=== PATIENT | female | born 1950 | race Caucasian/White ===

== ENCOUNTER 2019-03-11 13:30 | Inpatient (IN) | payer MEDICARE ==
[2019-03-11 14:26] LABS: Bilirubin Negative (Negative); Blood, Urine Negative (Negative); Clarity Turbid (Clear); Glucose, Urine (Dipstick) Normal (Negative); Leukocyte Negative Leu/uL (Negative); Nitrite Negative (Negative); Protein, Urine (Dipstick) 30 mg/dL (Neg-Trace)
[2019-03-11 14:45] LABS: Bacteria/HPF None Seen HPF (None Seen); RBC/HPF 0-3 HPF (0-3); Squamous Epithelial 0-3 HPF (0-3); WBC/HPF 0-3 HPF (0-3)
--- NOTE | 2019-03-11 14:50 | CT ---
CT HEAD WITHOUT CONTRAST: Date: 03/11/19 INDICATION: Left side weakness. Mental status change. No comparison. FINDINGS: Mild cortical volume loss. Mild chronic ischemic white matter change. No evidence of parenchymal hemo rrhage, mass, or acute infarct. Small focal dural based calcifications along the lateral wall of the left middle temporal fossa may r epresent small calcified meningioma and these are incidental. Sinuses and mastoids are clear. IMPRESSION: There are chronic ischemic changes. No acute process identified. POS: [facility]
[2019-03-11 15:18] LABS: Hemoglobin 10.3 g/dL (12.0-16.0); Mean Corpuscular HGB CONC 31.3 g/dL (32.0-36.0); Mean Corpuscular Volume 99.1 fL (78.0-98.0); Mean Platelet Volume 9.1 fL (7.4-10.4); Platelet Count 138 thou/uL (130-400); RBC Distribution Width 16.5 % (11.5-14.5); Red Blood Cell (RBC) Count 3.32 mill/uL (4.20-5.40)
[2019-03-11 15:22] LABS: Albumin 1.8 g/dL (3.4-4.8)
[2019-03-11 15:23] LABS: Chloride 100 mmol/L (98-107); Sodium 125 mmol/L (136-145)
[2019-03-11 15:24] LABS: Calcium 7.7 mg/dL (7.8-10.44)
[2019-03-11 15:25] LABS: Globulin 3.5 g/dL (2.4-3.5); Glucose 134 mg/dL (80-115); Protein, Total 5.3 g/dL (6.0-8.3)
[2019-03-11 15:26] LABS: Anion Gap 15 mmol/L (10-20); Carbon Dioxide 14 mmol/L (23-31)
[2019-03-11 15:27] LABS: Alkaline Phosphatase 320 U/L (40-150); Bilirubin, Total 2.4 mg/dL (0.2-1.2)
[2019-03-11 15:27] LABS: CKMB 2.4 ng/mL (0-6.6)
[2019-03-11 15:28] LABS: Calc. Creatinine Clearance 0 mL/min (70-130); Estimated GFR-MDRD 62
[2019-03-11 15:29] LABS: BUN (Urea Nitrogen) 13 mg/dL (9.8-20.1)
[2019-03-11 15:30] LABS: ALT (SGPT) 28 U/L (8-55); AST (SGOT) 43 U/L (5-34)
[2019-03-11 15:36] LABS: Anisocytosis SLIGHT = 6-15 cells (100X) (0-5/hpf); Band 11 % (5-11); Lymphocytes 5 % (21-51); MDiff Complete? YES; Monocytes 4 % (0-10); Neutrophil 80 % (42-75); Nucleated RBC 1 % (0); Platelet Morphology Comment Appears Adequate; Polychromasia SLIGHT = 2-3 cells (100X) (0-2/hpf); Target Cells SLIGHT = 2-5 cells (100X) (0-1/hpf); White Blood Cell (WBC) Count 14.7 thou/uL (4.8-10.8)
[2019-03-11] MEDS ORDERED: Piperacillin/Tazobactam 4.5 GM VIAL ONE (15:49)
--- NOTE | 2019-03-11 16:23 | RAD ---
SINGLE VIEW CHEST: HISTORY: Altered mental status. COMPARISON: None. FINDINGS: Single view of the chest show normal sized cardiomediastinal silhouette. There is no evidence of cons olidation, mass, or pleural effusion. The bones are unremarkable. IMPRESSION: No evidence of acute cardiopulmonary disease. POS: C
[2019-03-11 17:51] LABS: Troponin I 0.049 ng/mL (< 0.028)
[2019-03-11] MEDS ORDERED: Aspirin 300 MG Suppository ONE (18:42)
--- NOTE | 2019-03-11 20:09 | HP ---
PRIMARY CARE PROVIDERS: ALYSSA Senior CHIEF COMPLAINT: "Not really responding." HISTORY OF PRESENT ILLNESS: This is a 68-year-old female, by chart review with history of malnutrition, pancreatitis on Creon, hypokalemia, hyponatremia, GERD, hypertension, who presents to the emergency room from [facility] for a change in mentation. History from the states that she is not really responding. He reports that she was hospitalized at another facility and thinks it was [facility], and then transferred to the residential. He is unaware of why they transferred her here today. He states that she is normally verbal, she has been bed-bound over the past month, and that her speech is different today. The patient is not moving her left arm, minimal movement of her left leg. He is not certain when this began. The patient reports that she feels better. She is unable to tell me what had happened, what changed and what is new now. In the emergency room, the patient hypothermic, tachycardic, with a leukocytosis , lactic acidosis, hyponatremia. She has received 1.5 L of normal saline, 4.5 g of Zosyn, and hospitalist called for admission. ALLERGIES: NO ALLERGIES TO MEDICATIONS CONFIRMED WITH THE PATIENT. CURRENT MEDICATIONS: [place] [facility] [place] 1. heparin 5000 units every 8 hours; however, on the sheet that is sent over, it states see the other MAR and this order was discontinued, it is not listed in any of the other paperwork. 2. Folic acid 1 mg daily. 3. Vitamin B12 of 1000 mcg daily. 4. Creon. The dosing strength is not listed. It only states three times daily. 5. Magnesium oxide 400 mg daily. 6. Multivitamin daily. 7. Pantoprazole 40 mg b.i.d. 8. Potassium phosphate t.i.d. with meals. 9. Thiamine 100 mg daily. 10. Furosemide 20 mg tablet 1/2 tablet daily. PAST MEDICAL HISTORY: By chart review 1. Malnutrition. 2. Pancreatitis. 3. Hypokalemia. 4. Hyponatremia. 5. GERD. 6. Hypertension. 7. Alcohol and tobacco abuse. PAST SURGICAL HISTORY: The patient reports a left breast surgery at age 16. SOCIAL HISTORY: She is , her reports she is a full code, she [place] [facility] FAMILY HISTORY: Unobtainable. REVIEW OF SYSTEMS: Unobtainable. PHYSICAL EXAMINATION: VITAL SIGNS: Her blood pressure 110/73, pulse 99, respirations 20, rectal temperature at 17:15 was 94.8, and 100% on room air. GENERAL: Patient does awaken to voice, not in apparent distress, cachectic appearing. HEENT: Her eyes are deviated to the right, do not cross the midline even to request. She has no scleral icterus. Her pupils are equal and round. Oral mucosa is pink and moist. NECK: Supple. Nontender. LUNGS: Clear to auscultation bilateral. No audible wheezing, rhonchi, or rales. HEART: Normal S1, S2. Distant heart sounds. No significant murmur. ABDOMEN: Soft. No tenderness to palpation. No palpable abnormalities. EXTREMITIES: Her lower extremities, she has 2+ pitting edema bilateral. SKIN: No visible rashes, some erythema noted by the nurses of her sacrum, but no breakdown of skin. NEURO: The patient is not following commands, no movement of her left arm with a left hand contracture, movement of her left toes only but not of her leg, full movement of her right arm, no movement noted of her right leg, extraocular movements as noted above. PSYCH: Unable to adequately assess. VASCULAR: 2+ dorsalis pedis pulses. LABORATORY DATA: Labs reviewed. CBC 14.7, 10.3, 33, 138. Chemistry: 125, 4.0, 114, 13, 0.9, 134. Lactic acid is 6.2. Calcium is 7.7, T-bilirubin 2.4, AST 43, ALT 28, alkaline phosphatase 320. Troponin 0.04, 0.049. Total protein 5.3, albumin 1.8. Urinalysis shows present protein and urobilinogen. EKG is personally reviewed, sinus rhythm, normal axis, and lots of artifact. CT scan of the brain shows chronic ischemic changes. No acute process. Chest x-ray, no evidence of acute cardiopulmonary disease. IMPRESSION: 1. Left hemiparesis as well as a hemianopsia, uncertain if this is acute or chronic and it is consistent with ischemic stroke. 2. Hyponatremia, uncertain if this is acute or chronic. 3. Cachexia, severe, protein-calorie malnutrition. 4. Lactic acidosis, concern for sepsis, however, no source of infection identified. 5. History of pancreatitis, on Creon therapy. 6. Gastroesophageal reflux disease. 7. History of hypertension, normotensive here. 8. Hypoalbuminemia. 9. Lower extremity edema. 10. Proteinuria. PLAN: 1. Admission to the hospital. 2. Stroke evaluation which will include Stroke Team, Neurology, MRI of the brain , echocardiogram to start with. 3. Dietitian consultation given the severe protein-calorie malnutrition, n.p.o. until cleared by Speech. 4. For the hyponatremia, consultation with Dr. Muse, he will see her this evening and manage the fluids. 5. Holding her outpatient medications and vitamin supplements for now. We will use IV PPI as she is on this twice daily. 6. We will continue Zosyn and lower the dosing covering for sepsis and monitoring her cultures. 7. Obtaining urine studies for the hyponatremia. 8. Continuing daily aspirin. We will use rectal aspirin for now. 9. Obtain records from [facility] to determine to help decipher what is acute versus what is chronic. 10. Palliative Care consultation to assist with goals of care, discussions with the patient's , and any recommendations on symptom management. 11. DVT prophylaxis. We will use heparin. 12. GI prophylaxis. The patient is on a b.i.d. PPI. We will use that in IV form. 13. Code status is full in discussion with the who is her surrogate decision maker. The patient is at high risk to include risk of in-hospital , given current presentation. Reviewed the plan of care with the patient's , no questions or further needs at end of evaluation. Job ID: [id number] MTDD
[2019-03-11 20:18] LABS: #Lymphocytes 1.4 thou/uL (1.20-3.40); #Monocytes 0.5 thou/uL (0.11-0.59); #Neutrophils 9.5 thou/uL (1.40-6.50); %Basophils 0.3 % (0.0-1.0); %Eosinophils 0.1 % (0.0-10.0); %Lymphocytes 11.9 % (21.0-51.0); %Monocytes 4.4 % (0.0-10.0); %Neutrophils 83.3 % (42.0-75.0); Hemoglobin 8.2 g/dL (12.0-16.0); Mean Corpuscular Hemoglobin 31.2 pg (27.0-31.0); Mean Platelet Volume 9.2 fL (7.4-10.4); Platelet Count 133 thou/uL (130-400); RBC Distribution Width 16.3 % (11.5-14.5); Red Blood Cell (RBC) Count 2.61 mill/uL (4.20-5.40); White Blood Cell (WBC) Count 11.5 thou/uL (4.8-10.8)
[2019-03-11 20:39] LABS: Lactic Acid 3.8 mmol/L (0.5-2.2)
[2019-03-11 20:42] LABS: ALT (SGPT) 25 U/L (8-55); AST (SGOT) 38 U/L (5-34); Albumin 1.5 g/dL (3.4-4.8); Alkaline Phosphatase 276 U/L (40-150); Anion Gap 13 mmol/L (10-20); BUN (Urea Nitrogen) 14 mg/dL (9.8-20.1); Calc. Creatinine Clearance 0 mL/min (70-130); Calcium 7.2 mg/dL (7.8-10.44); Carbon Dioxide 15 mmol/L (23-31); Chloride 103 mmol/L (98-107); Estimated GFR-MDRD 65; Globulin 3.1 g/dL (2.4-3.5); Glucose 140 mg/dL (80-115); Potassium 3.8 mmol/L (3.5-5.1); Protein, Total 4.6 g/dL (6.0-8.3); Sodium 127 mmol/L (136-145)
[2019-03-11 20:45] LABS: Troponin I 0.035 ng/mL (< 0.028)
--- NOTE | 2019-03-11 20:55 | ULT ---
CAROTID ULTRASOUND: 03/11/19 COMPARISON: None. HISTORY: Stroke. Altered mental status and left sided weakness. TECHNIQUE: Multiplanar jenkins scale and color Doppler images were obtained in a carotid ultrasound. Spectral leatha sis of the Doppler waveforms were performed. FINDINGS: This exam is limited secondary to altered mental status and inability to turn head. There is a large amount of plaque seen in the distal aspect of the left common femoral artery and internal carotid art todd. The right common carotid artery could be seen but the bifurcation and right internal carotid art todd could not be visualized secondary to inability to turn head. Peak systolic velocity in the left ICA is 112 cm/s. Peak systolic velocity in the left CCA is 69 cm/ s. The left ICA/CCA ratio is 1.6. The right ICA could not be visualized as stated above. Both vertebral arteries demonstrate antegrade flow without focal stenosis. IMPRESSION: 1. No evidence of hemodynamically significant stenosis in the left internal carotid artery altho ugh a significant amount of plaque is seen. 2. Inability to evaluate the right internal carotid artery secondary to altered mental status an d inability to turn head. POS: [facility]
[2019-03-11] MEDS: Sodium Chloride 0.9% 1,000 ML IV SCH (21:55)
[2019-03-11] MEDS: Heparin 5,000 UNITS/ML VIAL SC SCH (21:56)
[2019-03-11] MEDS: Pantoprazole 40 MG VIAL IVP SCH (21:57)
[2019-03-11] MEDS: Albumin 25% 25 GM/100 ML BOT IVPB SCH (22:05)
[2019-03-11] MEDS: Piperacillin/Tazobactam 2.25 GM in Sodium Chloride 0.9% 100 ML IVPB SCH (22:13)
--- NOTE | 2019-03-12 03:30 | CON ---
DATE OF CONSULTATION: 03/11/2019 CONSULTING PHYSICIAN: Leny Gonzalez MD REASON FOR CONSULT: Hyponatremia. REASON FOR ADMISSION: Altered mentation. HISTORY OF PRESENT ILLNESS: This is a 68-year-old female with history of hypokalemia, hyponatremia, hypertension, pancreatitis, malnutrition, came to the hospital with altered mentation. She was sent from [facility]. She is not able to give a good history. Most of the history was obtained from review of the records. The patient is not verbally answering the queries and has been bedbound. No nausea or vomiting. No chest pain or palpitation reported. PAST MEDICAL HISTORY: Positive for malnutrition, hypokalemia, hyponatremia, GERD, hypertension, alcohol, tobacco use. PAST SURGICAL HISTORY: Breast surgery. HOME MEDICATIONS: Include; 1. Heparin. 2. Folic acid. 3. Vitamin B12. 4. Creon. 5. Magnesium oxide. 6. Multivitamin. 7. Pantoprazole. 8. Potassium phosphate. 9. Thiamine. 10. Furosemide. ALLERGIES: NO KNOWN DRUG ALLERGIES. SOCIAL HISTORY: History of alcohol use and she is . She lives in a custodial. FAMILY HISTORY: Not available. REVIEW OF SYSTEMS: Could not be obtained due to altered mentation. PHYSICAL EXAMINATION: GENERAL: This is a thin-built elderly female, in no apparent distress. VITAL SIGNS: Temperature 94.8, pulse 99, respiratory rate 20, blood pressure 110/73. HEENT: Atraumatic, normocephalic. Oral mucosa is moist. NECK: Supple. CV: S1, S2 heard. Rate and rhythm regular. RESPIRATORY: Clear. GI: Abdomen is soft. MUSCULOSKELETAL: 2+ edema. DERMATOLOGIC: No skin rash. NEUROLOGIC: Confused and altered mentation. LABORATORY DATA: Hemoglobin is 8.2, MCV is 101, white count is 11.5. Potassium 3.8, sodium is 127, BUN is 14, creatinine is 0.8, and albumin is 1.5. ASSESSMENT AND PLAN: 1. Hyponatremia, most likely from reduced solute intake and hypovolemia. Plan is to have IV fluids. The patient did respond to IV fluids so far. 2. Metabolic acidosis. We will continue IV fluids for now. 3. Severe hypoalbuminemia with severe protein energy malnutrition. Plan is to give IV albumin for volume expansion. 4. Anemia, macrocytic, on folate. 5. Edema, chronic. 6. Hypertension, stable. Continue on IV fluids. Check urine protein to creatinine ratio. Check urine electrolytes. We will follow. Job ID: [id number]
[2019-03-12] MEDS: Piperacillin/Tazobactam 2.25 GM in Sodium Chloride 0.9% 100 ML IVPB SCH ×4 (05:10→23:58)
[2019-03-12] MEDS: Albumin 25% 25 GM/100 ML BOT IVPB SCH (05:11)
[2019-03-12 05:16] LABS: #Eosinphils 0.1 thou/uL (0.0-0.7); #Lymphocytes 1.6 thou/uL (1.20-3.40); #Neutrophils 8.7 thou/uL (1.40-6.50); %Basophils 0.2 % (0.0-1.0); %Eosinophils 0.8 % (0.0-10.0); %Lymphocytes 14.4 % (21.0-51.0); %Monocytes 8.3 % (0.0-10.0); %Neutrophils 76.3 % (42.0-75.0); Hemoglobin 7.8 g/dL (12.0-16.0); Mean Corpuscular HGB CONC 31.4 g/dL (32.0-36.0); Mean Corpuscular Hemoglobin 31.3 pg (27.0-31.0); Mean Corpuscular Volume 99.7 fL (78.0-98.0); Mean Platelet Volume 9.3 fL (7.4-10.4); Platelet Count 132 thou/uL (130-400); RBC Distribution Width 16.4 % (11.5-14.5); Red Blood Cell (RBC) Count 2.49 mill/uL (4.20-5.40); White Blood Cell (WBC) Count 11.4 thou/uL (4.8-10.8)
[2019-03-12 05:43] LABS: Anion Gap 11 mmol/L (10-20); BUN (Urea Nitrogen) 15 mg/dL (9.8-20.1); Calc. Creatinine Clearance 57 mL/min (70-130); Calcium 7.5 mg/dL (7.8-10.44); Carbon Dioxide 17 mmol/L (23-31); Cardiac Risk TEST NOT PERFORMED (Less than 4.5); Chloride 105 mmol/L (98-107); Cholesterol 67 mg/dl (< 200 Desired); Estimated GFR-MDRD 65; Glucose 102 mg/dL (80-115); HDL Cholesterol Less than 8 mg/dL (>60 Neg Risk); Potassium 3.6 mmol/L (3.5-5.1); Sodium 129 mmol/L (136-145); Triglycerides 61 mg/dL (Less than 150)
[2019-03-12 06:14] LABS: Creatinine, Urine 23.61 mg/dL (47-110); Protein, Urine Random Quant Less than 10 mg/dL (1-14); Sodium, Urine Less than 20 mmol/L (Not Available)
[2019-03-12] MEDS: Heparin 5,000 UNITS/ML VIAL SC SCH ×2 (10:32→21:44)
[2019-03-12] MEDS: Pantoprazole 40 MG VIAL IVP SCH ×2 (10:33→21:44)
[2019-03-12] MEDS: Sodium Chloride 0.9% 1,000 ML IV SCH (10:34)
--- NOTE | 2019-03-12 10:46 | MRI ---
MRI BRAIN WITHOUT CONTRAST: Date: 03/12/19 HISTORY: Left-sided weakness, mental status change. FINDINGS: There is restricted diffusion due to large right and small left watershed infarctions in the cerebral hemispheres. No hemorrhage, midline shift, or abnormal extra-axial fluid collections are seen. There are changes of cortical atrophy and chronic small vessel ischemic disease. The ventricular size is a ppropriate and the basilar cisterns are patent. IMPRESSION: Acute large right and small left watershed infarctions in the cerebral hemispheres. POS: [facility]
--- NOTE | 2019-03-12 11:49 | PDOC.PALCO ---
Palliative Care Consult - Consult Details Requesting Physician: Dr Gonzalez ([facility]) Reason for Consult: goals of care, advance directives assistance, assistance with communication prognosis/disease, complex decision-making, coping issues - Pertinent HPI Resident of [facility] who was transferred to emergency room for evaluation secondary to altered mental status. reported in the ER that patient has a recent hospitalization at [facility], was then transferred to [facility] and has been bedbound recently. - Pertinent PMH Malnutrition, pancreatitis, hypokalemia, hyponaturemia, hypertension, alcohol and tobacco abuse. - Social History Smoking Status: Former smoker Living Situation: skilled nursing resident - Allergies Allergies/Adverse Reactions: Allergies Allergy/AdvReac Type Severity Reaction Status Date / Time No Known Allergies Allergy Verified 03/12/19 00:17 - Subjective Sleeping, difficult to arouse. Patient did not follow request/or unable to patient case coordinator hands, move lower extremities. Staff report that patient was awake earlier, failed consult from speech therapy in relation to swallow test. - Objective Vital Signs: Vital Signs - Most Recent Temp Pulse Resp BP Pulse Ox 97.5 F L 115 H 14 92/65 98 03/12/19 08:00 03/12/19 08:51 03/12/19 08:00 03/12/19 08:51 03/12/19 08:00 Palliative Performance Scale: 20 - Physical Exam Deviation from normal: difficult to arouse, chronically ill appearing, cachetic HEENT: moist MMs Respiratory: no wheezing, unlabored breathing Cardiovascular: RRR Gastrointestinal: soft, positive bowel sounds Musculoskeletal: edema present Deviation from normal: report of left hemiplegia, unable to follow my request to patient case coordinator hands - Problem List (1) Palliative care encounter Code(s): Z51.5 - ENCOUNTER FOR PALLIATIVE CARE Current Visit: Yes Status: Acute - Plan/Recommendations Plan: Called patient daughter Alexis , will update after visiting with patient . Meeting arranged with patient Mr Jiang [phone]. Plan to discuss patient DNAR status, as well as OOHDNAR. Will discuss goals for patient paired with change in current health status. Dr Nguyen notified of plan. Will continue to follow with Kimi Vicente RNproduct manager RN. [60] minutes spent on this encounter with >50% of the time in counseling and coordination of care. Thank you for this very appropriate consult.
--- NOTE | 2019-03-12 13:12 | CON ---
DATE OF CONSULTATION: 03/12/2019 CONSULTING PHYSICIAN: Hospitalist Service. IMPRESSION: Dementia with reported mental status changes of uncertain etiology. PLAN: 1. IV fluids. 2. Monitor clinical course. 3. Check B12, T4, ammonia level. HISTORY OF PRESENT ILLNESS: Ms. Jiang is a 68-year-old black female with reported history of dementia and some metabolic issues including hypokalemia, hyponatremia, reflux, hypertension, pancreatitis, and malnutrition. She came in after her reports that she did not seem to be responding appropriately. No other history available. Her CT of the brain showed some normal age-related changes. Carotid ultrasound did not show any stenosis. LABORATORY STUDIES: Notable for hypocalcemia of 7.7, elevated bilirubin of 2.4, mild elevation of liver enzymes, and low protein levels. Bicarb was 14 and sodium was 125. PAST MEDICAL HISTORY: Otherwise as listed. ALLERGIES: NONE. SOCIAL HISTORY: Unremarkable. FAMILY HISTORY: Not obtainable. REVIEW OF SYSTEMS: Not obtainable. PHYSICAL EXAMINATION: GENERAL: She is a thin elderly female, lying in bed, in no acute distress. VITAL SIGNS: Blood pressure 112/68, pulse 114, respirations 14, temperature 97.5. HEENT: Pupils equal. Conjunctivae clear. Oropharynx is clear. Cranium, normocephalic and atraumatic. NECK: Supple. No lymphadenopathy noted. EXTREMITIES: No cyanosis or edema noted. NEUROLOGIC: She is lethargic and does not respond to verbal stimulation. I could get her to open her eyes briefly, but she would not follow any commands. Face appears to be symmetric. Her tone appears to be symmetric. No abnormal movements are seen. SUMMARY: This is an elderly lady with a history of dementia, who presents with some metabolic abnormalities on her labs. I do not see any evidence of an acute neurologic event at this point, suspect is going to be a metabolic encephalopathy. Check for the lab for completeness. Job ID: [id number]
--- NOTE | 2019-03-12 14:45 | PRG ---
DATE OF SERVICE: 03/12/2019 SUBJECTIVE: Patient was seen and examined at bedside and overnight events noted. Patient denies any shortness of breath or chest pain or palpitation. No history of nausea or vomiting or diarrhea or fever or chills or cramps. OBJECTIVE: GENERAL: This is an elderly female, nonverbal, in no acute distress. VITAL SIGNS: Temperature 97.3. Heart rate . Respiratory rate . Blood pressure 106/66. HEENT: Atraumatic, normocephalic. Oral mucosa is moist NECK: Supple. CARDIOVASCULAR: S1, S2 heard. Rate and rhythm regular. RESPIRATORY: Clear to auscultation. GASTROINTESTINAL: Abdomen is soft. MUSCULOSKELETAL: No tenderness. No edema. DERMATOLOGIC: No skin rash. NEUROLOGIC: Alert and awake and oriented X3. No focal neurologic deficits. Moving all the extremities. PSYCHIATRIC: Mood and affect normal. LABORATORY DATA: Sodium 129 and creatinine 0.8. ASSESSMENT AND PLAN: 1. Hyponatremia, getting better. Continue on IV fluids. Most likely from reduced solute intake. 2. Metabolic acidosis. 3. Severe hypoalbuminemia. 4. Edema, chronic. 5. Hypertension, stable. Continue IV fluids. Monitor sodium. Job ID: [id number]
--- NOTE | 2019-03-12 15:29 | PDOC.PN ---
- Subjective Encounter Start Date: 03/12/19 Encounter Start Time: 12:00 Pt seen for followup re: ischemic stroke. Pt not answering questions, unable to complete ROS. - Objective Resuscitation Status - Order Detail: 03/11/19 19:01 Resuscitation Status Routine Resuscitation Status: FULL: Full Resuscitation Discussed with: confirmed with ROSSY Reviewed: Yes Vital Signs & Weight: Vital Signs (12 hours) Temp Pulse Pulse Pulse Resp BP BP 03/12/19 12:00 97.3 F L 99 16 03/12/19 08:51 115 H 108 H 92/65 73/51 L 03/12/19 08:47 115 H 108 H 92/65 73/51 L 03/12/19 08:00 97.5 F L 114 H 14 03/12/19 03:54 97.4 F L 110 H 18 BP Pulse Ox 03/12/19 12:00 106/66 99 03/12/19 08:51 03/12/19 08:47 03/12/19 08:00 112/68 98 03/12/19 03:54 99/61 99 Weight Admit Weight 129 lb 8 oz Weight 129 lb 8 oz I&O: 03/11/19 03/12/19 03/13/19 06:59 06:59 06:59 Output Total 281 Balance -281 Result Diagrams: 03/12/19 04:46 03/12/19 04:46 EKG Reviewed by me: Yes (Tele: NSR) Phys Exam - Physical Examination Constitutional: NAD HEENT: moist MMs Neck: supple Respiratory: clear to auscultation bilateral Cardiovascular: RRR Gastrointestinal: soft Neurological: moves all 4 limbs Deviation from normal: Unable to assess Dx/Plan (1) Acute ischemic stroke Code(s): I63.9 - CEREBRAL INFARCTION, UNSPECIFIED Status: Acute Comment: continue aspirin, start statin (2) Hyponatremia Code(s): E87.1 - HYPO-OSMOLALITY AND HYPONATREMIA Status: Chronic Comment: sodium improved to 129 (3) GERD (gastroesophageal reflux disease) Code(s): K21.9 - GASTRO-ESOPHAGEAL REFLUX DISEASE WITHOUT ESOPHAGITIS Status: Chronic Comment: continue Protonix 40 mg IV q12hr (4) HTN (hypertension) Code(s): I10 - ESSENTIAL (PRIMARY) HYPERTENSION Status: Chronic Comment: controlled - Plan * . Review of Systems - Medications/Allergies Allergies/Adverse Reactions: Allergies Allergy/AdvReac Type Severity Reaction Status Date / Time No Known Allergies Allergy Verified 03/12/19 00:17 Medications: Current Medications Aspirin (Aspirin) 300 mg MT Q24HR [facility] Atorvastatin Calcium (Lipitor) 40 mg PO HS [facility] Heparin Sodium (Porcine) (Heparin) 5,000 units SC Q12HR [facility] Last Admin: 03/12/19 10:32 Dose: 5,000 units Piperacillin Sod/Tazobactam (Sod 2.25 gm/ Sodium Chloride) 100 mls @ 200 mls/ hr IVPB 0400,1000,1600,2200 [facility] Last Admin: 03/12/19 10:34 Dose: 100 mls Sodium Chloride (Normal Saline 0.9%) 1,000 mls @ 75 mls/hr IV .[id number] [facility] Last Admin: 03/12/19 10:34 Dose: 1,000 mls Miscellaneous Medication (Pharmacy To Dose) 1 each IVPB PRN PRN PRN Reason: Pharmacy to dose Pantoprazole Sodium (Protonix) 40 mg IVP Q12HR [facility] Last Admin: 03/12/19 10:33 Dose: 40 mg Sodium Chloride (Flush - Normal Saline) 10 ml IVF PRN PRN PRN Reason: Saline Flush Last Admin: 03/11/19 21:58 Dose: 10 ml
--- NOTE | 2019-03-12 16:13 | PDOC.PALFU ---
Palliative Care Follow-up Note Extensive conversatin with patient in relation to patient decline, and resuscitation status. Mr Jiang states that he and his never discussed their wishes if they became ill and not able to make decisions for themselves. Mr Jiang having difficulty understanding her decline and making the decision to have patient either a DNAR or full resuscitation. Communicated with patients daughter and she is understanding of patient decline and the severity of Mrs Jiang health status. Encouraged Mr Jiang to discuss with his step daughter and discuss and communicate to health care team tomorrow their wishes.
[2019-03-12] MEDS: Aspirin 300 MG Suppository PR SCH (18:22)
[2019-03-12] MEDS: Atorvastatin Calcium 40 MG TAB PO SCH (21:43)
[2019-03-13] MEDS: Sodium Chloride 0.9% 1,000 ML IV SCH ×2 (06:18→23:17)
[2019-03-13] MEDS: Piperacillin/Tazobactam 2.25 GM in Sodium Chloride 0.9% 100 ML IVPB SCH ×4 (06:18→23:18)
[2019-03-13] MEDS: Heparin 5,000 UNITS/ML VIAL SC SCH ×2 (10:52→20:29)
[2019-03-13] MEDS: Pantoprazole 40 MG VIAL IVP SCH ×2 (10:53→20:29)
[2019-03-13 11:54] LABS: Anion Gap 14 mmol/L (10-20); BUN (Urea Nitrogen) 14 mg/dL (9.8-20.1); Calc. Creatinine Clearance 61 mL/min (70-130); Calcium 7.7 mg/dL (7.8-10.44); Carbon Dioxide 15 mmol/L (23-31); Chloride 108 mmol/L (98-107); Estimated GFR-MDRD 70; Glucose 77 mg/dL (80-115); Potassium 3.2 mmol/L (3.5-5.1); Sodium 134 mmol/L (136-145)
--- NOTE | 2019-03-13 13:16 | PDOC.PN ---
- Subjective Encounter Start Date: 03/13/19 Encounter Start Time: 07:20 Pt seen for followup re: ischemic CVA. Not answering questions, unable to complete ROS. - Objective Resuscitation Status - Order Detail: 03/11/19 19:01 Resuscitation Status Routine Resuscitation Status: FULL: Full Resuscitation Discussed with: confirmed with ROSSY Reviewed: Yes Vital Signs & Weight: Vital Signs (12 hours) Temp Pulse Resp BP Pulse Ox 03/13/19 11:49 97.9 F 94 14 99/59 L 98 03/13/19 08:00 97.5 F L 100 16 94/59 L 96 03/13/19 03:35 97.5 F L 105 H 20 94/65 100 Weight Admit Weight 129 lb 8 oz Weight 129 lb 8 oz I&O: 03/12/19 03/13/19 03/14/19 06:59 06:59 06:59 Output Total 281 Balance -281 Result Diagrams: 03/12/19 04:46 03/13/19 11:28 EKG Reviewed by me: Yes (Tele: NSR) Phys Exam - Physical Examination Constitutional: NAD HEENT: moist MMs Neck: no nodes Respiratory: clear to auscultation bilateral Cardiovascular: no rub Gastrointestinal: soft Moving RUE only, not other three extremities Psychiatric: normal affect Dx/Plan (1) Acute ischemic stroke Code(s): I63.9 - CEREBRAL INFARCTION, UNSPECIFIED Status: Acute Comment: continue aspirin and atorvastatin (2) Hyponatremia Code(s): E87.1 - HYPO-OSMOLALITY AND HYPONATREMIA Status: Chronic Comment: sodium improved to 134 (3) GERD (gastroesophageal reflux disease) Code(s): K21.9 - GASTRO-ESOPHAGEAL REFLUX DISEASE WITHOUT ESOPHAGITIS Status: Chronic Comment: continue Protonix (4) HTN (hypertension) Code(s): I10 - ESSENTIAL (PRIMARY) HYPERTENSION Status: Chronic Comment: controlled - Plan * . Review of Systems - Medications/Allergies Allergies/Adverse Reactions: Allergies Allergy/AdvReac Type Severity Reaction Status Date / Time No Known Allergies Allergy Verified 03/12/19 00:17 Medications: Current Medications Aspirin (Aspirin) 300 mg MT Q24HR [facility] Last Admin: 03/12/19 18:22 Dose: 300 mg Atorvastatin Calcium (Lipitor) 40 mg PO HS [facility] Last Admin: 03/12/19 21:43 Dose: Not Given Heparin Sodium (Porcine) (Heparin) 5,000 units SC Q12HR [facility] Last Admin: 03/13/19 10:52 Dose: 5,000 units Piperacillin Sod/Tazobactam (Sod 2.25 gm/ Sodium Chloride) 100 mls @ 200 mls/ hr IVPB 0400,1000,1600,2200 [facility] Last Admin: 03/13/19 10:53 Dose: 100 mls Sodium Chloride (Normal Saline 0.9%) 1,000 mls @ 50 mls/hr IV .Q20H [facility] Last Admin: 03/13/19 06:18 Dose: 1,000 mls Miscellaneous Medication (Pharmacy To Dose) 1 each IVPB PRN PRN PRN Reason: Pharmacy to dose Pantoprazole Sodium (Protonix) 40 mg IVP Q12HR [facility] Last Admin: 03/13/19 10:53 Dose: 40 mg Sodium Chloride (Flush - Normal Saline) 10 ml IVF PRN PRN PRN Reason: Saline Flush Last Admin: 03/11/19 21:58 Dose: 10 ml
[2019-03-13] MEDS ORDERED: Sodium Bicarbonate 150 MEQ in Dextrose 5% in Water 1,000 ML IV SCH (13:30)
--- NOTE | 2019-03-13 14:23 | PRG ---
DATE OF SERVICE: 03/13/2019 SUBJECTIVE: Patient was seen and examined at bedside and overnight events noted. Patient denies any shortness of breath or chest pain or palpitation. No history of nausea or vomiting or diarrhea or fever or chills or cramps. OBJECTIVE: GENERAL: This is a well built female, in no apparent distress. VITAL SIGNS: Temperature 97, pulse 94, respirations 14, blood pressure 99/59. HEENT: Atraumatic, normocephalic. Oral mucosa is moist NECK: Supple. CARDIOVASCULAR: S1, S2 heard. Rate and rhythm regular. RESPIRATORY: Clear to auscultation. GASTROINTESTINAL: Abdomen is soft. MUSCULOSKELETAL: No tenderness. No edema. DERMATOLOGIC: No skin rash. NEUROLOGIC: Alert and awake and oriented X3. No focal neurologic deficits. Moving all the extremities. PSYCHIATRIC: Mood and affect normal. LABORATORY DATA: Sodium 134, potassium 3.2, BUN is 14, creatinine 0.8. ASSESSMENT AND PLAN: 1. Hyponatremia, better. 2. Acidosis, we will add . 3. Hypokalemia, replace. 4. Severe hypoalbuminemia. 5. Hypotension. Monitor magnesium, phosphate, and potassium. We will follow. Job ID: [id number]
[2019-03-13] MEDS: Potassium Chloride 20 MEQ in Premix Bag 1 BAG IVPB SCH ×2 (14:56→20:21)
[2019-03-13] MEDS: Aspirin 300 MG Suppository PR SCH (18:10)
[2019-03-13] MEDS: Atorvastatin Calcium 40 MG TAB PO SCH (20:29)
[2019-03-14] MEDS: Piperacillin/Tazobactam 2.25 GM in Sodium Chloride 0.9% 100 ML IVPB SCH ×3 (05:31→17:03)
[2019-03-14 08:42] LABS: Phosphorus 2.7 mg/dL (2.3-4.7)
[2019-03-14 08:44] LABS: Anion Gap 14 mmol/L (10-20); BUN (Urea Nitrogen) 14 mg/dL (9.8-20.1); Calc. Creatinine Clearance 59 mL/min (70-130); Calcium 7.7 mg/dL (7.8-10.44); Carbon Dioxide 16 mmol/L (23-31); Chloride 108 mmol/L (98-107); Estimated GFR-MDRD 67; Glucose 119 mg/dL (80-115); Magnesium 1.4 mg/dL (1.6-2.6); Potassium 3.7 mmol/L (3.5-5.1); Sodium 134 mmol/L (136-145)
[2019-03-14] MEDS: Pantoprazole 40 MG VIAL IVP SCH ×2 (09:55→20:34)
[2019-03-14] MEDS: Heparin 5,000 UNITS/ML VIAL SC SCH ×2 (09:55→20:33)
--- NOTE | 2019-03-14 14:43 | PRG ---
DATE OF SERVICE: 03/14/2019 SUBJECTIVE: Patient was seen and examined at bedside and overnight events noted. Patient denies any shortness of breath or chest pain or palpitation. No history of nausea or vomiting or diarrhea or fever or chills or cramps. OBJECTIVE: GENERAL: This is a well-built female, in no apparent distress. VITAL SIGNS: Temperature 98.7. Heart rate 115. Respiratory rate 17. Blood pressure 96/60. HEENT: Atraumatic, normocephalic. Oral mucosa is moist. NECK: Supple. CARDIOVASCULAR: S1, S2 heard. Rate and rhythm regular. RESPIRATORY: Clear to auscultation. GASTROINTESTINAL: Abdomen is soft. MUSCULOSKELETAL: No tenderness. No edema. DERMATOLOGIC: No skin rash. NEUROLOGIC: Alert and awake and oriented x3. No focal neurologic deficits. Moving all the extremities. PSYCHIATRIC: Mood and affect normal. LABORATORY DATA: Potassium 3.7, BUN is 14, creatinine is 0.8, and sodium is 134. ASSESSMENT AND PLAN: 1. Hyponatremia, stable. 2. Acidosis. We will add sodium bicarb. 3. Hypokalemia. 4. Severe hypoalbuminemia. 5. Hypertension, stable. Monitor labs and electrolytes. We will follow. Job ID: [id number]
[2019-03-14] MEDS: Sodium Bicarbonate Tab 325 MG TAB PO SCH ×2 (15:30→20:33)
[2019-03-14] MEDS: Aspirin 300 MG Suppository PR SCH (17:03)
--- NOTE | 2019-03-14 17:39 | PDOC.PN ---
- Subjective Encounter Start Date: 03/14/19 Encounter Start Time: 07:20 Pt seen for followup re: ischemic CVA. Not answering questions, unable to complete ROS. - Objective Resuscitation Status - Order Detail: 03/11/19 19:01 Resuscitation Status Routine Resuscitation Status: FULL: Full Resuscitation Discussed with: confirmed with ROSSY Reviewed: Yes Vital Signs & Weight: Vital Signs (12 hours) Temp Pulse Resp BP Pulse Ox 03/14/19 15:58 97.3 F L 103 H 16 101/65 99 03/14/19 12:24 96/67 03/14/19 12:00 98.0 F 115 H 16 89/63 L 95 03/14/19 10:03 91/58 L 03/14/19 08:00 97.4 F L 102 H 16 85/54 L 93 L Weight Admit Weight 129 lb 8 oz Weight 129 lb 8 oz I&O: 03/13/19 03/14/19 03/15/19 06:59 06:59 06:59 Intake Total 1200 1230 Output Total 650 100 Balance 550 1130 Result Diagrams: 03/12/19 04:46 03/14/19 08:12 EKG Reviewed by me: Yes (Tele: NSR) Phys Exam - Physical Examination Constitutional: NAD HEENT: moist MMs Neck: supple Respiratory: no wheezing Cardiovascular: RRR, no rub Gastrointestinal: soft, non-tender Only moving RUE Psychiatric: normal affect Dx/Plan (1) Acute ischemic stroke Code(s): I63.9 - CEREBRAL INFARCTION, UNSPECIFIED Status: Acute Comment: on aspirin and atorvastatin; therapy services following. (2) Hypomagnesemia Code(s): E83.42 - HYPOMAGNESEMIA Status: Acute Comment: replace magnesium (3) Hyponatremia Code(s): E87.1 - HYPO-OSMOLALITY AND HYPONATREMIA Status: Chronic Comment: sodium stable at 134 (4) GERD (gastroesophageal reflux disease) Code(s): K21.9 - GASTRO-ESOPHAGEAL REFLUX DISEASE WITHOUT ESOPHAGITIS Status: Chronic Comment: on Protonix (5) HTN (hypertension) Code(s): I10 - ESSENTIAL (PRIMARY) HYPERTENSION Status: Chronic Comment: controlled (6) Hypokalemia Code(s): E87.6 - HYPOKALEMIA Status: Resolved - Plan * . Review of Systems - Medications/Allergies Allergies/Adverse Reactions: Allergies Allergy/AdvReac Type Severity Reaction Status Date / Time No Known Allergies Allergy Verified 03/12/19 00:17 Medications: Current Medications Aspirin (Aspirin) 300 mg [place] Q24HR [facility] Last Admin: 03/14/19 17:03 Dose: 300 mg Atorvastatin Calcium (Lipitor) 40 mg PO HS [facility] Last Admin: 03/13/19 20:29 Dose: 40 mg Heparin Sodium (Porcine) (Heparin) 5,000 units SC Q12HR [facility] Last Admin: 03/14/19 09:55 Dose: 5,000 units Sodium Chloride (Normal Saline 0.9%) 1,000 mls @ 50 mls/hr IV .Q20H [facility] Last Admin: 03/13/19 23:17 Dose: Not Given Piperacillin Sod/Tazobactam (Sod 2.25 gm/ Sodium Chloride) 100 mls @ 200 mls/ hr IVPB Q6HR [facility] Last Admin: 03/14/19 17:03 Dose: 100 mls Miscellaneous Medication (Pharmacy To Dose) 1 each IVPB PRN PRN PRN Reason: Pharmacy to dose Pantoprazole Sodium (Protonix) 40 mg IVP Q12HR [facility] Last Admin: 03/14/19 09:55 Dose: 40 mg Sodium Bicarbonate (Bicarbonate, Sodium) 650 mg PO TID [facility] Last Admin: 03/14/19 15:30 Dose: 650 mg Sodium Chloride (Flush - Normal Saline) 10 ml IVF PRN PRN PRN Reason: Saline Flush Last Admin: 03/11/19 21:58 Dose: 10 ml
[2019-03-14] MEDS ORDERED: Magnesium 2 GM/50 ML 2 GM in Premix Bag 1 BAG IVPB SCH (17:45)
[2019-03-14] MEDS: Atorvastatin Calcium 40 MG TAB PO SCH (20:33)
[2019-03-15] MEDS: Piperacillin/Tazobactam 2.25 GM in Sodium Chloride 0.9% 100 ML IVPB SCH ×4 (00:29→18:06)
[2019-03-15] MEDS: Sodium Chloride 0.9% 1,000 ML IV SCH ×3 (02:30→21:44)
[2019-03-15] MEDS: Pantoprazole 40 MG VIAL IVP SCH ×2 (10:23→21:43)
[2019-03-15] MEDS: Sodium Bicarbonate Tab 325 MG TAB PO SCH ×3 (10:23→21:40)
[2019-03-15] MEDS: Heparin 5,000 UNITS/ML VIAL SC SCH ×2 (10:23→21:40)
--- NOTE | 2019-03-15 10:40 | PDOC.PALFU ---
Palliative Care Follow-up Note Called and arranged to meet with Mr Jiang today at 1pm to discuss DNAR. OOHDNAR and possibly hospice. Leyla DEY and CHEPE Garrett notified. Will attempt to have patient daughter international affairs vice president for conversation.
--- NOTE | 2019-03-15 12:58 | PDOC.PN ---
- Subjective Encounter Start Date: 03/15/19 Encounter Start Time: 07:40 Pt seen for followup re: CVA. Awake but not answering questions, could not complete ROS. - Objective Resuscitation Status - Order Detail: 03/11/19 19:01 Resuscitation Status Routine Resuscitation Status: FULL: Full Resuscitation Discussed with: confirmed with ROSSY Reviewed: Yes Vital Signs & Weight: Vital Signs (12 hours) Temp Pulse Resp BP BP Pulse Ox 03/15/19 12:25 90/52 L 03/15/19 12:00 95.9 F L 114 H 16 86/54 L 92 L 03/15/19 08:00 97.5 F L 99 14 100/56 L 93 L 03/15/19 04:14 92 95/57 L 03/15/19 04:00 97.8 F 97 20 80/51 L 99 Weight Admit Weight 129 lb 8 oz Weight 149 lb I&O: 03/14/19 03/15/19 03/16/19 06:59 06:59 06:59 Intake Total 1200 1230 Output Total 650 100 Balance 550 1130 Result Diagrams: 03/12/19 04:46 03/14/19 08:12 EKG Reviewed by me: Yes (Tele: NSR) Phys Exam - Physical Examination Constitutional: NAD HEENT: moist MMs Neck: supple Respiratory: clear to auscultation bilateral Cardiovascular: RRR Gastrointestinal: soft Moves RUE only Psychiatric: normal affect Dx/Plan (1) Acute ischemic stroke Code(s): I63.9 - CEREBRAL INFARCTION, UNSPECIFIED Status: Acute Comment: continue aspirin and atorvastatin (2) Hypothyroidism Code(s): E03.9 - HYPOTHYROIDISM, UNSPECIFIED Status: Acute Comment: start synthroid (3) Hypomagnesemia Code(s): E83.42 - HYPOMAGNESEMIA Status: Acute Comment: replaced magnesium, check level (4) Hyponatremia Code(s): E87.1 - HYPO-OSMOLALITY AND HYPONATREMIA Status: Chronic Comment: sodium stable at 134 (5) GERD (gastroesophageal reflux disease) Code(s): K21.9 - GASTRO-ESOPHAGEAL REFLUX DISEASE WITHOUT ESOPHAGITIS Status: Chronic Comment: stable, on Protonix (6) HTN (hypertension) Code(s): I10 - ESSENTIAL (PRIMARY) HYPERTENSION Status: Chronic Comment: controlled (7) Hypokalemia Code(s): E87.6 - HYPOKALEMIA Status: Resolved - Plan * . Review of Systems - Medications/Allergies Allergies/Adverse Reactions: Allergies Allergy/AdvReac Type Severity Reaction Status Date / Time No Known Allergies Allergy Verified 03/12/19 00:17 Medications: Current Medications Aspirin (Aspirin) 300 mg [place] Q24HR [facility] Last Admin: 03/14/19 17:03 Dose: 300 mg Atorvastatin Calcium (Lipitor) 40 mg PO HS [facility] Last Admin: 03/14/19 20:33 Dose: 40 mg Heparin Sodium (Porcine) (Heparin) 5,000 units SC Q12HR [facility] Last Admin: 03/15/19 10:23 Dose: 5,000 units Sodium Chloride (Normal Saline 0.9%) 1,000 mls @ 50 mls/hr IV .Q20H [facility] Last Admin: 03/15/19 02:30 Dose: 1,000 mls Piperacillin Sod/Tazobactam (Sod 2.25 gm/ Sodium Chloride) 100 mls @ 200 mls/ hr IVPB Q6HR [facility] Last Admin: 03/15/19 12:23 Dose: 100 mls Miscellaneous Medication (Pharmacy To Dose) 1 each IVPB PRN PRN PRN Reason: Pharmacy to dose Pantoprazole Sodium (Protonix) 40 mg IVP Q12HR [facility] Last Admin: 03/15/19 10:23 Dose: 40 mg Sodium Bicarbonate (Bicarbonate, Sodium) 650 mg PO TID [facility] Last Admin: 03/15/19 10:23 Dose: 650 mg Sodium Chloride (Flush - Normal Saline) 10 ml IVF PRN PRN PRN Reason: Saline Flush Last Admin: 03/14/19 20:35 Dose: 10 ml
--- NOTE | 2019-03-15 13:31 | PDOC.PALFU ---
Palliative Care Follow-up Note Met with Mr Jiang, patients . His sister was with him. Mr Apolinar confused and could not remember the conversation we had Friday in relation to DNAR and OOHDNAR. Contacted patient daughter Alexis, no answer but left a voice mail to have her return our call. Fadia Vicente RN also present. Palliative care will continue to support patient and continue to contact patient daughter in addressing DNAR and OOHDNAR as Mr Jiang has significant memory loss.
[2019-03-15] MEDS ORDERED: Levothyroxine 100 MCG SDV IVP SCH (14:45)
[2019-03-15] MEDS: Hydrocortisone Sod Succ/PF 100 mg/2 ml Vial IVP SCH ×2 (16:15→21:45)
[2019-03-15] MEDS: Vancomycin HCl 1 GM in Premix Bag 1 BAG IVPB SCH (16:28)
[2019-03-15] MEDS: Aspirin 300 MG Suppository PR SCH (18:06)
--- NOTE | 2019-03-15 19:18 | PDOC.EVN ---
Event Note - Event Note Event Note: Pt was hypotensive and hypothermic earlier. No significant change in physical exam. DDx includes myxedema and sepsis.Started her on IV hydrocortisone and IV synthroid. Added IV vancomycin (pt was already on Zosyn). Updated family, discussed with them risk of synthroid, including cardiac side effects. After discussing risks vs benefits family was agreeable to the medications.
[2019-03-15] MEDS: Atorvastatin Calcium 40 MG TAB PO SCH (21:40)
[2019-03-16] MEDS: Piperacillin/Tazobactam 2.25 GM in Sodium Chloride 0.9% 100 ML IVPB SCH ×4 (01:35→18:24)
[2019-03-16] MEDS: Vancomycin HCl 1 GM in Premix Bag 1 BAG IVPB SCH ×2 (04:23→16:32)
[2019-03-16] MEDS ORDERED: Levothyroxine Sodium 50 MCG TAB PO SCH (06:00)
[2019-03-16] MEDS: Hydrocortisone Sod Succ/PF 100 mg/2 ml Vial IVP SCH ×3 (06:26→21:33)
[2019-03-16] MEDS: Levothyroxine 100 MCG SDV IVP SCH (06:26)
[2019-03-16 06:44] LABS: Hemoglobin 6.6 g/dL (12.0-16.0); Hypochromia SLIGHT = 6-15 cells (100X) (0-5/hpf); Lymphocytes 3 % (21-51); MDiff Complete? YES; Mean Corpuscular HGB CONC 30.4 g/dL (32.0-36.0); Mean Corpuscular Hemoglobin 30.4 pg (27.0-31.0); Mean Platelet Volume 9.6 fL (7.4-10.4); Monocytes 1 % (0-10); Neutrophil 96 % (42-75); Platelet Count 126 thou/uL (130-400); Platelet Morphology Comment Appears Adequate; RBC Distribution Width 16.7 % (11.5-14.5); Red Blood Cell (RBC) Count 2.18 mill/uL (4.20-5.40); White Blood Cell (WBC) Count 11.3 thou/uL (4.8-10.8)
[2019-03-16 08:02] LABS: Anion Gap 16 mmol/L (10-20); BUN (Urea Nitrogen) 14 mg/dL (9.8-20.1); Calc. Creatinine Clearance 64 mL/min (70-130); Carbon Dioxide 13 mmol/L (23-31); Chloride 116 mmol/L (98-107); Estimated GFR-MDRD 61; Glucose 149 mg/dL (80-115); Magnesium 1.6 mg/dL (1.6-2.6); Potassium 4.8 mmol/L (3.5-5.1); Sodium 140 mmol/L (136-145)
[2019-03-16] MEDS: Heparin 5,000 UNITS/ML VIAL SC SCH (09:51)
[2019-03-16] MEDS: Sodium Bicarbonate Tab 325 MG TAB PO SCH ×3 (09:52→21:34)
[2019-03-16] MEDS: Pantoprazole 40 MG VIAL IVP SCH ×2 (09:52→21:33)
[2019-03-16 10:08] LABS: Iron 57 ug/dL (50-170)
[2019-03-16 11:31] LABS: Vitamin B12 Greater than 2000 pg/mL (211-911)
[2019-03-16 13:40] LABS: Iron Binding Capacity, Total 53 mcg/dL (265-497)
--- NOTE | 2019-03-16 14:49 | PDOC.PN ---
- Subjective Encounter Start Date: 03/16/19 Encounter Start Time: 07:20 Pt seen for followup re: ischemic CVA. More alert today, not answering questions, could not complete ROS. - Objective Resuscitation Status - Order Detail: 03/11/19 19:01 Resuscitation Status Routine Resuscitation Status: FULL: Full Resuscitation Discussed with: confirmed with ROSSY Reviewed: Yes Vital Signs & Weight: Vital Signs (12 hours) Temp Pulse Resp BP BP Pulse Ox 03/16/19 12:50 96.2 F L 03/16/19 11:47 95.9 F L 84 20 89/60 L 100 03/16/19 08:00 96.6 F L 76 20 98/62 98 03/16/19 04:00 97.5 F L 100 18 102/61 99 Weight Admit Weight 129 lb 8 oz Weight 155 lb 11.2 oz I&O: 03/15/19 03/16/19 03/17/19 06:59 06:59 06:59 Intake Total 1230 1546 Output Total 100 200 Balance 1130 1346 Result Diagrams: 03/16/19 06:20 03/16/19 07:34 Additional Labs: Labs reviewed by me EKG Reviewed by me: Yes (Tele: NSR) Phys Exam - Physical Examination Constitutional: NAD HEENT: moist MMs Neck: supple Respiratory: clear to auscultation bilateral Cardiovascular: RRR Gastrointestinal: soft Musculoskeletal: edema present Moves RUE only Psychiatric: normal affect Dx/Plan (1) Acute ischemic stroke Code(s): I63.9 - CEREBRAL INFARCTION, UNSPECIFIED Status: Acute Comment: on aspirin and atorvastatin (2) Anemia Code(s): D64.9 - ANEMIA, UNSPECIFIED Status: Acute Comment: Anemia of chronic disease vs acute blood loss. Check reticulocyte count. Stool occult blood test pending. (3) Hypothyroidism Code(s): E03.9 - HYPOTHYROIDISM, UNSPECIFIED Status: Acute Comment: continue IV synthroid, check AM free T4 level (4) GERD (gastroesophageal reflux disease) Code(s): K21.9 - GASTRO-ESOPHAGEAL REFLUX DISEASE WITHOUT ESOPHAGITIS Status: Chronic Comment: stable (5) HTN (hypertension) Code(s): I10 - ESSENTIAL (PRIMARY) HYPERTENSION Status: Chronic Comment: controlled (6) Hypokalemia Code(s): E87.6 - HYPOKALEMIA Status: Resolved (7) Hypomagnesemia Code(s): E83.42 - HYPOMAGNESEMIA Status: Resolved (8) Hyponatremia Code(s): E87.1 - HYPO-OSMOLALITY AND HYPONATREMIA Status: Resolved - Plan * . Pt is on Lilliana Hugger for hypothermia. Also on empiric antibiotics for suspected sepsis. Yesterday there was concern re: myxedema, so was started on IV synthroid and hydrocortisone. Goals of care being discussed by palliative care team. Review of Systems - Medications/Allergies Allergies/Adverse Reactions: Allergies Allergy/AdvReac Type Severity Reaction Status Date / Time No Known Allergies Allergy Verified 03/12/19 00:17 Medications: Current Medications Aspirin (Aspirin) 300 mg [place] Q24HR [facility] Last Admin: 03/15/19 18:06 Dose: 300 mg Atorvastatin Calcium (Lipitor) 40 mg PO HS [facility] Last Admin: 03/15/19 21:40 Dose: 40 mg Hydrocortisone Sodium Succinate (Solu-Cortef) 100 mg IVP Q8H [facility] Last Admin: 03/16/19 06:26 Dose: 100 mg Sodium Chloride (Normal Saline 0.9%) 1,000 mls @ 50 mls/hr IV .Q20H [facility] Last Admin: 03/15/19 21:44 Dose: 1,000 mls Piperacillin Sod/Tazobactam (Sod 2.25 gm/ Sodium Chloride) 100 mls @ 200 mls/ hr IVPB Q6HR [facility] Last Admin: 03/16/19 12:46 Dose: 100 mls Vancomycin HCl 1 gm/ Device 200 mls @ 200 mls/hr IVPB 0400,1600 [facility] Last Admin: 03/16/19 04:23 Dose: 200 mls Levothyroxine Sodium (Synthroid) 100 mcg IVP 0600 [facility] Last Admin: 03/16/19 06:26 Dose: 100 mcg Miscellaneous Medication (Pharmacy To Dose) 1 each IVPB PRN PRN PRN Reason: Pharmacy to dose Miscellaneous Medication (Pharmacy To Dose) 1 each IVPB DAILY [facility] Last Admin: 03/16/19 09:52 Dose: Not Given Pantoprazole Sodium (Protonix) 40 mg IVP Q12HR [facility] Last Admin: 03/16/19 09:52 Dose: 40 mg Sodium Bicarbonate (Bicarbonate, Sodium) 650 mg PO TID [facility] Last Admin: 03/16/19 09:52 Dose: 650 mg Sodium Chloride (Flush - Normal Saline) 10 ml IVF PRN PRN PRN Reason: Saline Flush Last Admin: 03/15/19 21:43 Dose: 10 ml
[2019-03-16 16:02] LABS: Vancomycin, Trough 16.6 ug/mL
[2019-03-16 16:10] LABS: Hemoglobin 8.8 g/dL (12.0-16.0)
[2019-03-16] MEDS: Aspirin 300 MG Suppository PR SCH (18:13)
[2019-03-16 19:07] LABS: Reticulocyte Count 3.9 % (0.5-1.5)
[2019-03-16] MEDS: Sodium Chloride 0.9% 1,000 ML IV SCH (21:33)
[2019-03-16] MEDS: Atorvastatin Calcium 40 MG TAB PO SCH (21:34)
[2019-03-17] MEDS: Piperacillin/Tazobactam 2.25 GM in Sodium Chloride 0.9% 100 ML IVPB SCH ×4 (01:22→17:22)
[2019-03-17] MEDS: Vancomycin HCl 1 GM in Premix Bag 1 BAG IVPB SCH ×3 (04:10→21:06)
[2019-03-17 05:32] LABS: Anion Gap 16 mmol/L (10-20); BUN (Urea Nitrogen) 14 mg/dL (9.8-20.1); Calc. Creatinine Clearance 54 mL/min (70-130); Calcium 7.3 mg/dL (7.8-10.44); Carbon Dioxide 14 mmol/L (23-31); Chloride 106 mmol/L (98-107); Estimated GFR-MDRD 49; Glucose 191 mg/dL (80-115); Sodium 133 mmol/L (136-145)
[2019-03-17 06:36] LABS: Mean Corpuscular Hemoglobin 31.3 pg (27.0-31.0); Mean Corpuscular Volume 97.7 fL (78.0-98.0); Mean Platelet Volume 10.1 fL (7.4-10.4); Platelet Count 161 thou/uL (130-400); RBC Distribution Width 16.7 % (11.5-14.5); Red Blood Cell (RBC) Count 3.53 mill/uL (4.20-5.40); White Blood Cell (WBC) Count 13.6 thou/uL (4.8-10.8)
[2019-03-17] MEDS: Hydrocortisone Sod Succ/PF 100 mg/2 ml Vial IVP SCH ×3 (07:16→21:06)
[2019-03-17] MEDS: Levothyroxine 100 MCG SDV IVP SCH (07:16)
[2019-03-17 07:50] LABS: Band 4 % (5-11); Lymphocytes 13 % (21-51); MDiff Complete? YES; Monocytes 4 % (0-10); Neutrophil 79 % (42-75); RBC Morphology Normal
[2019-03-17] MEDS: Pantoprazole 40 MG VIAL IVP SCH ×2 (09:31→21:06)
[2019-03-17] MEDS: Sodium Bicarbonate Tab 325 MG TAB PO SCH ×3 (09:43→21:07)
--- NOTE | 2019-03-17 14:41 | PDOC.PN ---
- Subjective Encounter Start Date: 03/17/19 Encounter Start Time: 07:20 Pt seen for followup re: CVA. Lethargic, not answering questions, unable to complete ROS. - Objective Resuscitation Status - Order Detail: 03/11/19 19:01 Resuscitation Status Routine Resuscitation Status: FULL: Full Resuscitation Discussed with: confirmed with Vital Signs & Weight: Vital Signs (12 hours) Temp Pulse Resp BP BP Pulse Ox 03/17/19 13:36 97.6 F 03/17/19 11:52 96.1 F L 72 18 100/69 99 03/17/19 09:43 99 03/17/19 07:52 96.7 F L 83 18 106/64 99 03/17/19 04:00 97.4 F L 95 19 122/62 95 Weight Admit Weight 129 lb 8 oz Weight 162 lb I&O: 03/16/19 03/17/19 03/18/19 06:59 06:59 06:59 Intake Total 1546 2526 Output Total 200 200 Balance 1346 2326 Result Diagrams: 03/17/19 06:30 03/17/19 05:08 Phys Exam - Physical Examination Constitutional: NAD HEENT: moist MMs Neck: supple Respiratory: clear to auscultation bilateral Cardiovascular: RRR Gastrointestinal: soft Musculoskeletal: edema present Movement only in RUE Deviation from normal: Unable to assess Dx/Plan (1) Acute ischemic stroke Code(s): I63.9 - CEREBRAL INFARCTION, UNSPECIFIED Status: Acute Comment: continue aspirin and atorvastatin (2) Anemia Code(s): D64.9 - ANEMIA, UNSPECIFIED Status: Acute Comment: Hemoglobin improved to 11 today (3) Vaginal bleeding Code(s): N93.9 - ABNORMAL UTERINE AND VAGINAL BLEEDING, UNSPECIFIED Status: Acute Comment: consult gynecology (4) Hypothyroidism Code(s): E03.9 - HYPOTHYROIDISM, UNSPECIFIED Status: Acute Comment: continue IV synthroid (5) GERD (gastroesophageal reflux disease) Code(s): K21.9 - GASTRO-ESOPHAGEAL REFLUX DISEASE WITHOUT ESOPHAGITIS Status: Chronic Comment: stable (6) HTN (hypertension) Code(s): I10 - ESSENTIAL (PRIMARY) HYPERTENSION Status: Chronic Comment: controlled (7) Hypokalemia Code(s): E87.6 - HYPOKALEMIA Status: Resolved (8) Hypomagnesemia Code(s): E83.42 - HYPOMAGNESEMIA Status: Resolved (9) Hyponatremia Code(s): E87.1 - HYPO-OSMOLALITY AND HYPONATREMIA Status: Resolved - Plan * . Review of Systems - Medications/Allergies Allergies/Adverse Reactions: Allergies Allergy/AdvReac Type Severity Reaction Status Date / Time No Known Allergies Allergy Verified 03/12/19 00:17 Medications: Current Medications Aspirin (Aspirin) 300 mg [place] Q24HR [facility] Last Admin: 03/16/19 18:13 Dose: 300 mg Atorvastatin Calcium (Lipitor) 40 mg PO HS [facility] Last Admin: 03/16/19 21:34 Dose: Not Given Hydrocortisone Sodium Succinate (Solu-Cortef) 100 mg IVP Q8H [facility] Last Admin: 03/17/19 07:16 Dose: Not Given Sodium Chloride (Normal Saline 0.9%) 1,000 mls @ 50 mls/hr IV .Q20H [facility] Last Admin: 03/16/19 21:33 Dose: 1,000 mls Piperacillin Sod/Tazobactam (Sod 2.25 gm/ Sodium Chloride) 100 mls @ 200 mls/ hr IVPB Q6HR [facility] Last Admin: 03/17/19 13:37 Dose: 100 mls Vancomycin HCl 1 gm/ Device 200 mls @ 200 mls/hr IVPB 0900,2100 [facility] Last Admin: 03/17/19 09:31 Dose: 200 mls Levothyroxine Sodium (Synthroid) 100 mcg IVP 0600 [facility] Last Admin: 03/17/19 07:16 Dose: Not Given Miscellaneous Medication (Pharmacy To Dose) 1 each IVPB PRN PRN PRN Reason: Pharmacy to dose Miscellaneous Medication (Pharmacy To Dose) 1 each IVPB DAILY [facility] Last Admin: 03/17/19 09:32 Dose: Not Given Pantoprazole Sodium (Protonix) 40 mg IVP Q12HR [facility] Last Admin: 03/17/19 09:31 Dose: 40 mg Sodium Bicarbonate (Bicarbonate, Sodium) 650 mg PO TID [facility] Last Admin: 03/17/19 09:43 Dose: Not Given Sodium Chloride (Flush - Normal Saline) 10 ml IVF PRN PRN PRN Reason: Saline Flush Last Admin: 03/15/19 21:43 Dose: 10 ml
[2019-03-17] MEDS: Aspirin 300 MG Suppository PR SCH (17:22)
[2019-03-17] MEDS: Sodium Chloride 0.9% 1,000 ML IV SCH ×2 (18:51→21:13)
[2019-03-17] MEDS: Atorvastatin Calcium 40 MG TAB PO SCH (21:07)
--- NOTE | 2019-03-17 22:57 | CON ---
DATE OF CONSULTATION: 03/17/2019 CONSULTING PHYSICIAN: Nic Nguyen MD CHIEF COMPLAINT: Vaginal bleeding. HISTORY OF PRESENT ILLNESS: This is a 68-year-old female who was admitted for CVA. She is currently very lethargic and not responding to questions, so I was unable to obtain a history from the patient. Per the nurse, the patient was noted to have a small amount of old-appearing blood on her pad, but nothing significant or heavy. Since this was a new finding, [employer] SERVICE TECHNICIAN was consulted. PAST MEDICAL HISTORY: Per the history in the chart, her past medical history includes, 1. Malnutrition. 2. Pancreatitis. 3. Hypokalemia. 4. Hyponatremia. 5. GERD. 6. Hypertension. 7. Alcohol and tobacco abuse. PAST SURGICAL HISTORY: Left breast surgery at age 16. SOCIAL HISTORY: . Her who is present is also demented. MEDICATIONS: Reviewed in the chart. ALLERGIES: NO KNOWN DRUG ALLERGIES. REVIEW OF SYSTEMS: Unable to be obtained. PHYSICAL EXAMINATION: VITAL SIGNS: Temperature 97.6, blood pressure 100/69, pulse 72, respiratory rate 18, and O2 saturation 99% on room air. GENERAL: No acute distress. CHEST: Nonlabored. Exam otherwise deferred. ASSESSMENT AND PLAN: A 68-year-old admitted for cerebral infarction on aspirin and atorvastatin, who had a new finding of vaginal bleeding. Given the patient's current state, I could not do a thorough exam without her consent or without a consenting medical power of civil litigation attorney present. Per the report from the nurse, it sounds like the bleeding is very minimal and given her current state, there is no treatment I would recommend at this time. If the patient improves enough that she is able to consent to an exam or treatment, please feel free to re-consult us. But again, at this time, it appears that the patient is decompensating in a way that further evaluation of this is unnecessary. Any medical treatment would require a thrombotic agent to be added and she is certainly not a surgical candidate at this time. Please let us know if we can be any further assistance. Job ID: [id number]
[2019-03-18] MEDS: Piperacillin/Tazobactam 2.25 GM in Sodium Chloride 0.9% 100 ML IVPB SCH ×4 (01:04→17:48)
[2019-03-18 06:05] LABS: Anion Gap 15 mmol/L (10-20); BUN (Urea Nitrogen) 15 mg/dL (9.8-20.1); Calc. Creatinine Clearance 54 mL/min (70-130); Calcium 7.4 mg/dL (7.8-10.44); Carbon Dioxide 13 mmol/L (23-31); Chloride 107 mmol/L (98-107); Estimated GFR-MDRD 46; Glucose 195 mg/dL (80-115); Potassium 3.1 mmol/L (3.5-5.1); Sodium 132 mmol/L (136-145)
[2019-03-18] MEDS: Hydrocortisone Sod Succ/PF 100 mg/2 ml Vial IVP SCH ×3 (06:15→21:49)
[2019-03-18] MEDS: Levothyroxine 100 MCG SDV IVP SCH (06:15)
[2019-03-18 06:22] LABS: Band 2 % (5-11); Hemoglobin 8.7 g/dL (12.0-16.0); Hypochromia SLIGHT = 6-15 cells (100X) (0-5/hpf); Lymphocytes 8 % (21-51); MDiff Complete? YES; Mean Corpuscular HGB CONC 32.3 g/dL (32.0-36.0); Mean Corpuscular Hemoglobin 31.4 pg (27.0-31.0); Mean Corpuscular Volume 97.2 fL (78.0-98.0); Mean Platelet Volume 10.4 fL (7.4-10.4); Monocytes 2 % (0-10); Neutrophil 88 % (42-75); Platelet Count 148 thou/uL (130-400); Platelet Morphology Comment Appears Adequate; RBC Distribution Width 16.5 % (11.5-14.5); Red Blood Cell (RBC) Count 2.77 mill/uL (4.20-5.40); White Blood Cell (WBC) Count 12.5 thou/uL (4.8-10.8)
[2019-03-18] MEDS: Vancomycin HCl 1 GM in Premix Bag 1 BAG IVPB SCH ×2 (08:41→21:24)
[2019-03-18] MEDS: Pantoprazole 40 MG VIAL IVP SCH ×2 (08:41→21:23)
[2019-03-18] MEDS: Sodium Bicarbonate Tab 325 MG TAB PO SCH ×3 (08:42→21:23)
--- NOTE | 2019-03-18 16:42 | PDOC.PN ---
- Subjective Encounter Start Date: 03/18/19 Encounter Start Time: 08:00 Pt seen for followup re: ischemic cva. Not answering questions, unable to complete ROS. - Objective Resuscitation Status - Order Detail: 03/11/19 19:01 Resuscitation Status Routine Resuscitation Status: FULL: Full Resuscitation Discussed with: confirmed with ROSSY Reviewed: Yes Vital Signs & Weight: Vital Signs (12 hours) Temp Pulse Resp BP Pulse Ox 03/18/19 15:45 97.4 F L 93 16 129/78 100 03/18/19 11:31 97.5 F L 80 18 103/74 100 03/18/19 08:45 99 03/18/19 07:41 97.4 F L 101 H 17 126/91 H 99 Weight Admit Weight 129 lb 8 oz Weight 166 lb 11.2 oz I&O: 03/17/19 03/18/19 03/19/19 06:59 06:59 06:59 Intake Total 2526 1582 Output Total 200 Balance 2326 1582 Result Diagrams: 03/18/19 05:16 03/18/19 05:16 EKG Reviewed by me: Yes (Tele: NSR) Phys Exam - Physical Examination Constitutional: NAD HEENT: moist MMs Neck: supple Respiratory: clear to auscultation bilateral Cardiovascular: RRR Gastrointestinal: soft Moves RUE only Psychiatric: normal affect Dx/Plan (1) Acute ischemic stroke Code(s): I63.9 - CEREBRAL INFARCTION, UNSPECIFIED Status: Acute Comment: on aspirin and atorvastatin (2) Anemia Code(s): D64.9 - ANEMIA, UNSPECIFIED Status: Acute Comment: Hemoglobin 8.7 today (3) Vaginal bleeding Code(s): N93.9 - ABNORMAL UTERINE AND VAGINAL BLEEDING, UNSPECIFIED Status: Acute Comment: appreciate gynecology input (4) Hypothyroidism Code(s): E03.9 - HYPOTHYROIDISM, UNSPECIFIED Status: Acute Comment: continue IV synthroid since pt is NPO (5) GERD (gastroesophageal reflux disease) Code(s): K21.9 - GASTRO-ESOPHAGEAL REFLUX DISEASE WITHOUT ESOPHAGITIS Status: Chronic Comment: stable (6) HTN (hypertension) Code(s): I10 - ESSENTIAL (PRIMARY) HYPERTENSION Status: Chronic Comment: controlled (7) Hypokalemia Code(s): E87.6 - HYPOKALEMIA Status: Resolved (8) Hypomagnesemia Code(s): E83.42 - HYPOMAGNESEMIA Status: Resolved (9) Hyponatremia Code(s): E87.1 - HYPO-OSMOLALITY AND HYPONATREMIA Status: Resolved - Plan * . Review of Systems - Medications/Allergies Allergies/Adverse Reactions: Allergies Allergy/AdvReac Type Severity Reaction Status Date / Time No Known Allergies Allergy Verified 03/12/19 00:17 Medications: Current Medications Aspirin (Aspirin) 300 mg [place] Q24HR [facility] Last Admin: 03/17/19 17:22 Dose: 300 mg Atorvastatin Calcium (Lipitor) 40 mg PO HS [facility] Last Admin: 03/17/19 21:07 Dose: Not Given Hydrocortisone Sodium Succinate (Solu-Cortef) 100 mg IVP Q8H [facility] Last Admin: 03/18/19 14:15 Dose: 100 mg Sodium Chloride (Normal Saline 0.9%) 1,000 mls @ 50 mls/hr IV .Q20H [facility] Last Admin: 03/17/19 21:13 Dose: 1,000 mls Piperacillin Sod/Tazobactam (Sod 2.25 gm/ Sodium Chloride) 100 mls @ 200 mls/ hr IVPB Q6HR [facility] Last Admin: 03/18/19 12:21 Dose: 100 mls Vancomycin HCl 1 gm/ Device 200 mls @ 200 mls/hr IVPB 0900,2100 [facility] Last Admin: 03/18/19 08:41 Dose: 200 mls Levothyroxine Sodium (Synthroid) 100 mcg IVP 0600 [facility] Last Admin: 03/18/19 06:15 Dose: 100 mcg Miscellaneous Medication (Pharmacy To Dose) 1 each IVPB PRN PRN PRN Reason: Pharmacy to dose Miscellaneous Medication (Pharmacy To Dose) 1 each IVPB DAILY [facility] Last Admin: 03/18/19 08:41 Dose: Not Given Pantoprazole Sodium (Protonix) 40 mg IVP Q12HR [facility] Last Admin: 03/18/19 08:41 Dose: 40 mg Sodium Bicarbonate (Bicarbonate, Sodium) 650 mg PO TID [facility] Last Admin: 03/18/19 14:18 Dose: Not Given Sodium Chloride (Flush - Normal Saline) 10 ml IVF PRN PRN PRN Reason: Saline Flush Last Admin: 03/18/19 06:15 Dose: 10 ml
[2019-03-18] MEDS: Aspirin 300 MG Suppository PR SCH (17:49)
[2019-03-18] MEDS: Atorvastatin Calcium 40 MG TAB PO SCH (21:23)
[2019-03-18] MEDS: Sodium Chloride 0.9% 1,000 ML IV SCH (21:26)
[2019-03-19] MEDS: Piperacillin/Tazobactam 2.25 GM in Sodium Chloride 0.9% 100 ML IVPB SCH ×3 (01:06→21:08)
[2019-03-19] MEDS: Levothyroxine 100 MCG SDV IVP SCH (05:34)
[2019-03-19] MEDS: Hydrocortisone Sod Succ/PF 100 mg/2 ml Vial IVP SCH ×4 (05:49→22:24)
[2019-03-19 09:24] LABS: Hemoglobin 9.7 g/dL (12.0-16.0); Mean Corpuscular Volume 96.7 fL (78.0-98.0); Mean Platelet Volume 10.8 fL (7.4-10.4); Platelet Count 127 thou/uL (130-400); RBC Distribution Width 16.7 % (11.5-14.5); Red Blood Cell (RBC) Count 3.23 mill/uL (4.20-5.40); White Blood Cell (WBC) Count 16.9 thou/uL (4.8-10.8)
[2019-03-19] MEDS: Sodium Bicarbonate Tab 325 MG TAB PO SCH ×3 (09:28→21:22)
[2019-03-19 09:30] LABS: Anion Gap 14 mmol/L (10-20); BUN (Urea Nitrogen) 15 mg/dL (9.8-20.1); Calc. Creatinine Clearance 57 mL/min (70-130); Calcium 7.4 mg/dL (7.8-10.44); Carbon Dioxide 16 mmol/L (23-31); Chloride 109 mmol/L (98-107); Estimated GFR-MDRD 49; Glucose 142 mg/dL (80-115); Sodium 136 mmol/L (136-145)
[2019-03-19] MEDS: Pantoprazole 40 MG VIAL IVP SCH ×2 (09:34→21:07)
[2019-03-19 11:12] LABS: Band 4 % (5-11); Hypochromia SLIGHT = 6-15 cells (100X) (0-5/hpf); Lymphocytes 4 % (21-51); MDiff Complete? YES; Monocytes 2 % (0-10); Neutrophil 90 % (42-75); Platelet Morphology Comment Appears Decreased; Polychromasia SLIGHT = 2-3 cells (100X) (0-2/hpf); Target Cells SLIGHT = 2-5 cells (100X) (0-1/hpf)
--- NOTE | 2019-03-19 16:34 | PDOC.PN ---
- Subjective Encounter Start Date: 03/19/19 Encounter Start Time: 08:20 Pt seen for followup re: ischemic CVA. More alert today, waving her right hand. Not answering questions, could not complete ROS. - Objective Resuscitation Status - Order Detail: 03/11/19 19:01 Resuscitation Status Routine Resuscitation Status: FULL: Full Resuscitation Discussed with: confirmed with ROSSY Reviewed: Yes Vital Signs & Weight: Vital Signs (12 hours) Temp Pulse Resp BP Pulse Ox 03/19/19 16:00 88 14 104/70 96 03/19/19 12:00 97.5 F L 78 18 108/66 96 03/19/19 08:00 97.2 F L 90 16 105/63 100 Weight Admit Weight 129 lb 8 oz Weight 167 lb 3.2 oz I&O: 03/18/19 03/19/19 03/20/19 06:59 06:59 06:59 Intake Total 1582 Balance 1582 Result Diagrams: 03/19/19 09:00 03/19/19 09:00 EKG Reviewed by me: Yes (Tele: NSR) Phys Exam - Physical Examination Constitutional: NAD HEENT: moist MMs Neck: supple Respiratory: clear to auscultation bilateral Cardiovascular: RRR Gastrointestinal: soft not moving LUE Psychiatric: normal affect Dx/Plan (1) Acute ischemic stroke Code(s): I63.9 - CEREBRAL INFARCTION, UNSPECIFIED Status: Acute Comment: will continue aspirin and atorvastatin (2) Anemia Code(s): D64.9 - ANEMIA, UNSPECIFIED Status: Acute Comment: Hemoglobin improved to 9.7 today (3) Vaginal bleeding Code(s): N93.9 - ABNORMAL UTERINE AND VAGINAL BLEEDING, UNSPECIFIED Status: Acute Comment: appreciate gynecology input (4) Hypothyroidism Code(s): E03.9 - HYPOTHYROIDISM, UNSPECIFIED Status: Acute Comment: continue IV synthroid, check free T4 in AM (5) GERD (gastroesophageal reflux disease) Code(s): K21.9 - GASTRO-ESOPHAGEAL REFLUX DISEASE WITHOUT ESOPHAGITIS Status: Chronic Comment: stable (6) HTN (hypertension) Code(s): I10 - ESSENTIAL (PRIMARY) HYPERTENSION Status: Chronic Comment: controlled (7) Hypokalemia Code(s): E87.6 - HYPOKALEMIA Status: Resolved (8) Hypomagnesemia Code(s): E83.42 - HYPOMAGNESEMIA Status: Resolved (9) Hyponatremia Code(s): E87.1 - HYPO-OSMOLALITY AND HYPONATREMIA Status: Resolved - Plan plan discussed w/ family * . Antibiotics discontinued, preliminary cultures negative so far Review of Systems - Medications/Allergies Allergies/Adverse Reactions: Allergies Allergy/AdvReac Type Severity Reaction Status Date / Time No Known Allergies Allergy Verified 03/12/19 00:17 Medications: Current Medications Aspirin (Aspirin) [address] Q24HR [facility] Last Admin: 03/18/19 17:49 Dose: 300 mg Atorvastatin Calcium (Lipitor) 40 mg PO HS [facility] Last Admin: 03/18/19 21:23 Dose: 40 mg Hydrocortisone Sodium Succinate (Solu-Cortef) 100 mg IVP Q8H [facility] Last Admin: 03/19/19 15:19 Dose: 100 mg Sodium Chloride (Normal Saline 0.9%) 1,000 mls @ 50 mls/hr IV .Q20H [facility] Last Admin: 03/18/19 21:26 Dose: 1,000 mls Levothyroxine Sodium (Synthroid) 100 mcg IVP 0600 [facility] Last Admin: 03/19/19 05:34 Dose: 100 mcg Miscellaneous Medication (Pharmacy To Dose) 1 each IVPB DAILY [facility] Last Admin: 03/19/19 09:59 Dose: Not Given Pantoprazole Sodium (Protonix) 40 mg IVP Q12HR [facility] Last Admin: 03/19/19 09:34 Dose: 40 mg Potassium Chloride (Potassium Chloride) 10 meq IVPB Q4H [facility] Stop: 03/19/19 20:46 Sodium Bicarbonate (Bicarbonate, Sodium) 650 mg PO TID [facility] Last Admin: 03/19/19 15:19 Dose: 650 mg Sodium Chloride (Flush - Normal Saline) 10 ml IVF PRN PRN PRN Reason: Saline Flush Last Admin: 03/18/19 06:15 Dose: 10 ml
[2019-03-19] MEDS: Sodium Chloride 0.9% 1,000 ML IV SCH (16:40)
[2019-03-19] MEDS: Aspirin 300 MG Suppository PR SCH (17:44)
[2019-03-19] MEDS: Potassium Chloride 10 MEQ in Premix Bag 1 BAG IVPB SCH ×2 (19:29→23:53)
[2019-03-19] MEDS ORDERED: Albumin 25% 25 GM/100 ML BOT IVPB SCH (20:30)
[2019-03-19] MEDS ORDERED: Vancomycin HCl 1 GM in Premix Bag 1 BAG IVPB SCH (21:00)
[2019-03-19] MEDS: Atorvastatin Calcium 40 MG TAB PO SCH (21:22)
[2019-03-20] MEDS ORDERED: Albumin 25% 25 GM/100 ML BOT IVPB SCH ×2 (01:45→06:15)
[2019-03-20] MEDS: Piperacillin/Tazobactam 2.25 GM in Sodium Chloride 0.9% 100 ML IVPB SCH ×4 (02:04→20:46)
[2019-03-20] MEDS ORDERED: Digoxin 0.5 MG/2 ML AMP SLOW IVP SCH (06:15)
[2019-03-20] MEDS: Levothyroxine 100 MCG SDV IVP SCH (06:17)
[2019-03-20] MEDS: Hydrocortisone Sod Succ/PF 100 mg/2 ml Vial IVP SCH ×3 (08:12→21:55)
[2019-03-20 08:19] LABS: Anion Gap 17 mmol/L (10-20); BUN (Urea Nitrogen) 15 mg/dL (9.8-20.1); Calc. Creatinine Clearance 50 mL/min (70-130); Calcium 7.5 mg/dL (7.8-10.44); Carbon Dioxide 14 mmol/L (23-31); Chloride 109 mmol/L (98-107); Estimated GFR-MDRD 43; Glucose 146 mg/dL (80-115); Sodium 137 mmol/L (136-145)
[2019-03-20 08:21] LABS: Vancomycin, Trough 57.3 ug/mL
[2019-03-20 08:22] LABS: Potassium 2.9 mmol/L (3.5-5.1)
[2019-03-20 08:38] LABS: #Lymphocytes 0.9 thou/uL (1.20-3.40); #Monocytes 0.4 thou/uL (0.11-0.59); #Neutrophils 10.1 thou/uL (1.40-6.50); %Basophils 0.1 % (0.0-1.0); %Lymphocytes 7.9 % (21.0-51.0); %Monocytes 3.8 % (0.0-10.0); %Neutrophils 88.1 % (42.0-75.0); Hemoglobin 6.1 g/dL (12.0-16.0); MDiff Complete? YES; Mean Corpuscular HGB CONC 31.5 g/dL (32.0-36.0); Mean Corpuscular Hemoglobin 30.5 pg (27.0-31.0); Mean Corpuscular Volume 97.1 fL (78.0-98.0); Mean Platelet Volume 11.4 fL (7.4-10.4); Platelet Count 76 thou/uL (130-400); Platelet Morphology Comment Appears Decreased; RBC Distribution Width 16.5 % (11.5-14.5); White Blood Cell (WBC) Count 11.5 thou/uL (4.8-10.8)
[2019-03-20] MEDS ORDERED: Vancomycin HCl 1 GM in Premix Bag 1 BAG IVPB SCH (09:00)
[2019-03-20] MEDS: Pantoprazole 40 MG VIAL IVP SCH ×2 (09:53→20:36)
[2019-03-20] MEDS: Potassium Chloride 10 MEQ in Premix Bag 1 BAG IVPB SCH ×3 (09:53→18:08)
[2019-03-20] MEDS: Sodium Bicarbonate Tab 325 MG TAB PO SCH ×3 (09:54→20:46)
[2019-03-20] MEDS ORDERED: Furosemide 40 MG/4 ML VIAL IVP SCH (13:45)
[2019-03-20 14:07] LABS: #Lymphocytes 0.8 thou/uL (1.20-3.40); #Monocytes 0.6 thou/uL (0.11-0.59); #Neutrophils 10.5 thou/uL (1.40-6.50); %Basophils 0.3 % (0.0-1.0); %Lymphocytes 6.9 % (21.0-51.0); %Monocytes 4.7 % (0.0-10.0); %Neutrophils 88.1 % (42.0-75.0); Hemoglobin 6.1 g/dL (12.0-16.0); Mean Corpuscular Hemoglobin 30.5 pg (27.0-31.0); Mean Corpuscular Volume 98.4 fL (78.0-98.0); Mean Platelet Volume 11.6 fL (7.4-10.4); Platelet Count 69 thou/uL (130-400); RBC Distribution Width 16.8 % (11.5-14.5); White Blood Cell (WBC) Count 11.9 thou/uL (4.8-10.8)
--- NOTE | 2019-03-20 14:19 | CON ---
DATE OF CONSULTATION: 03/20/2019 SERVICE: Pulmonary Medicine. REASON FOR CONSULTATION: [facility] patient. HISTORY OF PRESENT ILLNESS: The patient is a 68-year-old female with past medical history significant for severe debility. She basically has lived her last couple of months in a bed-bound state. She comes just from [facility]. They do not know exactly when it happened, but she had onset of increasing mentation disturbances. Ultimately, she was discovered to have watershed infarcts at bilateral hemispheres. It was much worse on the right. In the emergency department, she was doing well and being considered for discharge from the hospital yesterday when she went into atrial fibrillation with a rapid rate. She dropped her blood pressures. As such, she was moved to the [facility]. Her weight was controlled overnight. Blood pressures remain quite marginal. She has decreasing p.o. intake, and is little less responsive than she was previously. She cannot provide me any additional elements of the history at this point. PAST MEDICAL HISTORY: 1. Gastroesophageal reflux disease. 2. Hypertension. 3. History of alcohol and tobacco abuse. 4. Protein-calorie malnutrition. 5. Chronic pancreatitis. 6. History of stroke. PAST SURGICAL HISTORY: Left breast surgery at age 16. SOCIAL HISTORY: Negative for alcohol, tobacco, or illicit drug use. She is a full-time resident at [facility]. She has no exposure to chemicals, dust, asbestos, or tuberculosis at this time. She does have a remote history of alcohol and tobacco use, but currently is not using anything. FAMILY HISTORY: Noncontributory. ALLERGIES: NKDA MEDICATIONS: A list of inpatient medications were reviewed. REVIEW OF SYSTEMS: This cannot be obtained as the patient is encephalopathic. PHYSICAL EXAMINATION: VITAL SIGNS: Afebrile currently. When she came to the [facility], she was a touch hypothermic with a temperature of 95.7. Pulse 91, blood pressure 79/55, respirations 24, saturation 100% on room air. GENERAL: The patient is awake and alert. She does attend. She is not following any commands at this point. HEENT: Normocephalic, atraumatic. Sclerae white. Conjunctivae pink. Oral mucosa is moist without lesions. LUNGS: Decent air entry. No prolonged expiratory phase is present. There are some dependent crackles. HEART: Normal rate. Regular. ABDOMEN: Soft, nontender, nondistended. Bowel sounds are positive. MUSCULOSKELETAL: No cyanosis or clubbing. There is diffuse 2+ pitting throughout. : No [place]. NEUROLOGIC: Grossly nonfocal. LABORATORY DATA: WBC 11.5, hemoglobin 6.1, platelets 76,000, and downtrending. Potassium 2.9; creatinine 1.24, which is gently up trending over the last 3 days ; calcium 7.5; vancomycin trough 57.3. Blood cultures x4 are negative. One was growing micrococcus species. Occult blood in the stool is negative. ASSESSMENT: 1. Atrial fibrillation with rapid ventricular response. 2. Hypokalemia. 3. Hypocalcemia. 4. Acute blood loss anemia. 5. Acute kidney injury on chronic kidney disease stage 2. 6. Systemic inflammatory response syndrome. DISCUSSION AND PLAN: Empiric antibiotics have been initiated. Her hemoglobin has dropped off. We will give her 2 units of blood. I will replace potassium and calcium today. Pulmonary/Critical Care will follow very closely while the patient remains in the IMCU. We will continue having palliative care discussions with the patient's family. At this point, if she is not eating well, we will likely need to pursue invasive means of providing nutrition verses transitioning to comfort care only. 70 minutes have been devoted to this patient in various activities. I personally reviewed all imaging studies and laboratory data noted within this document. For fifty percent of this time, I was interacting with the patient at the bedside or coordinating care with the care team. For the remainder of the time I was immediately available to the patient in the hospital unit. Job ID: [id number] [facility]
[2019-03-20] MEDS ORDERED: Calcium Gluconate 4.6 MEQ in Sodium Chloride 0.9% 100 ML IVPB SCH (14:30)
--- NOTE | 2019-03-20 14:49 | RAD ---
XR Abdomen 1 View/KUB HISTORY: Evaluation for Dobbhoff tube placement. COMPARISON: None. FINDINGS: A Dobbhoff feeding tube is at the GE junction and needs to be advanced several inches. A bi liary stent is also incidentally seen with air within the biliary tree. There is some mild dilatation of some of the proximal small bowel loops. Calcification appears to be related to chronic pancreatitis IMPRESSION: Dobbhoff feeding tube which needs to be advanced several inches.
[2019-03-20] MEDS: Calcium Gluconate 4.6 MEQ in Sodium Chloride 0.9% 100 ML IVPB SCH ×2 (16:34→20:46)
--- NOTE | 2019-03-20 17:48 | PDOC.PN ---
- Subjective Encounter Start Date: 03/20/19 Encounter Start Time: 11:40 Pt seen for followup re: afib with rvr. Pt not answering questions, unable to complete ROS. - Objective Resuscitation Status - Order Detail: 03/11/19 19:01 Resuscitation Status Routine Resuscitation Status: FULL: Full Resuscitation Discussed with: confirmed with ROSSY Reviewed: Yes Vital Signs & Weight: Vital Signs (12 hours) Temp Pulse Resp BP Pulse Ox 03/20/19 15:21 96.4 F L 03/20/19 15:00 100 03/20/19 12:10 79/55 L 03/20/19 11:08 97.8 F 88 100 03/20/19 11:00 16 03/20/19 08:00 18 90/53 L 97 03/20/19 07:17 97.8 F 03/20/19 06:20 136 H Weight Admit Weight 129 lb 8 oz Weight 164 lb 6 oz Most Recent Monitor Data Heart Rate from ECG 92 NIBP 89/58 NIBP BP-Mean 68 Respiration from ECG 16 SpO2 100 I&O: 03/19/19 03/20/19 03/21/19 06:59 06:59 06:59 Intake Total 440 Balance 440 Result Diagrams: 03/20/19 13:55 03/20/19 07:47 Additional Labs: Accuchecks 03/19/19 19:53 POC Glucose 190 H EKG Reviewed by me: Yes (Tele: lin da silva) Phys Exam - Physical Examination Constitutional: NAD HEENT: moist MMs Neck: supple Respiratory: clear to auscultation bilateral Cardiovascular: irregular Gastrointestinal: soft Moves RUE Psychiatric: normal affect Dx/Plan (1) Atrial fibrillation with RVR Code(s): I48.91 - UNSPECIFIED ATRIAL FIBRILLATION Status: Acute Comment: pt received digoxin, now in IMCU. Cardiology consult pending. (2) Acute ischemic stroke Code(s): I63.9 - CEREBRAL INFARCTION, UNSPECIFIED Status: Acute Comment: continue aspirin and atorvastatin (3) Anemia Code(s): D64.9 - ANEMIA, UNSPECIFIED Status: Acute Comment: pt to recive pRBC today (4) Vaginal bleeding Code(s): N93.9 - ABNORMAL UTERINE AND VAGINAL BLEEDING, UNSPECIFIED Status: Acute Comment: appreciate gynecology input (5) Hypothyroidism Code(s): E03.9 - HYPOTHYROIDISM, UNSPECIFIED Status: Acute Comment: continue IV synthroid (6) GERD (gastroesophageal reflux disease) Code(s): K21.9 - GASTRO-ESOPHAGEAL REFLUX DISEASE WITHOUT ESOPHAGITIS Status: Chronic Comment: stable (7) HTN (hypertension) Code(s): I10 - ESSENTIAL (PRIMARY) HYPERTENSION Status: Chronic Comment: controlled (8) Hypokalemia Code(s): E87.6 - HYPOKALEMIA Status: Resolved (9) Hypomagnesemia Code(s): E83.42 - HYPOMAGNESEMIA Status: Resolved (10) Hyponatremia Code(s): E87.1 - HYPO-OSMOLALITY AND HYPONATREMIA Status: Resolved - Plan continue antibiotics * . Review of Systems - Medications/Allergies Allergies/Adverse Reactions: Allergies Allergy/AdvReac Type Severity Reaction Status Date / Time No Known Allergies Allergy Verified 03/12/19 00:17 Medications: Current Medications Aspirin (Aspirin Chewable) 81 mg PO DAILY [facility] Atorvastatin Calcium (Lipitor) 40 mg PO HS [facility] Last Admin: 03/19/19 21:22 Dose: 40 mg Furosemide (Lasix) 40 mg IVP ASDIR [facility] Stop: 03/20/19 23:59 Hydrocortisone Sodium Succinate (Solu-Cortef) 50 mg IVP Q8HR [facility] Last Admin: 03/20/19 15:09 Dose: 50 mg Piperacillin Sod/Tazobactam (Sod 2.25 gm/ Sodium Chloride) 100 mls @ 200 mls/ hr IVPB Q6H [facility] Last Admin: 03/20/19 15:11 Dose: 100 mls Vancomycin HCl 1 gm/ Device 200 mls @ 200 mls/hr IVPB 0900,2100 [facility] Calcium Gluconate 4.6 meq/ (Sodium Chloride) 110 mls @ 200 mls/hr IVPB Q4HR [facility] Stop: 03/20/19 21:32 Last Admin: 03/20/19 16:34 Dose: 110 mls Levothyroxine Sodium (Synthroid) 100 mcg IVP 0600 [facility] Last Admin: 03/20/19 06:17 Dose: 100 mcg Miscellaneous Medication (Pharmacy To Dose) 1 each IVPB DAILY [facility] Last Admin: 03/20/19 08:39 Dose: Not Given Pantoprazole Sodium (Protonix) 40 mg IVP Q12HR [facility] Last Admin: 03/20/19 09:53 Dose: 40 mg Potassium Chloride (Klor-Con) 40 meq PO Q4H [facility] Stop: 03/20/19 18:01 Last Admin: 03/20/19 15:11 Dose: 40 meq Sodium Bicarbonate (Bicarbonate, Sodium) 650 mg PO TID [facility] Last Admin: 03/20/19 15:17 Dose: 650 mg Sodium Chloride (Flush - Normal Saline) 10 ml IVF PRN PRN PRN Reason: Saline Flush Last Admin: 03/18/19 06:15 Dose: 10 ml
[2019-03-20] MEDS: Atorvastatin Calcium 40 MG TAB PO SCH (20:36)
[2019-03-20 21:16] LABS: Vancomycin, Trough 49.9 ug/mL
--- NOTE | 2019-03-20 22:15 | CON ---
DATE OF CONSULTATION: HISTORY OF PRESENT ILLNESS: Nicole Jiang is a 68-year-old black female, care home resident at [facility]. She had previously had worsening mentation, found to have watershed infarcts in both hemispheres, much worse on the right. She cannot answer questions and is essentially bed-bound. She was going to be discharged, but then went into atrial fibrillation with fast ventricular response, transferred to [facility]. She was somewhat hypotensive. Ms. Jiang cannot provide any history. PAST MEDICAL HISTORY: Hypertension, chronic pancreatitis, watershed stroke as noted above. GERD. PAST SURGICAL HISTORY: Left breast surgery. CURRENT MEDICATIONS: 1. Aspirin 81 daily. 2. Atorvastatin 40 daily. 3. Furosemide 40 mg IV. 4. Levothyroxine 100 mcg IV. 5. Protonix 40 mg IV. 6. Vancomycin. 7. She also has been given digoxin 0.25 mg IV x2. ALLERGIES: NONE. SOCIAL HISTORY: She apparently smoke and drink in the past. REVIEW OF SYSTEMS: Unobtainable. PHYSICAL EXAMINATION: VITAL SIGNS: Blood pressure 104/69, pulse of 91, now in sinus rhythm. HEENT: PERRL. NECK: Supple. CHEST: Clear. CARDIAC: S1 and S2 normal without any S3 or S4. ABDOMEN: Normal bowel sounds without tenderness or organomegaly. EXTREMITIES: Reveal 1+ pretibial edema. NEUROLOGIC: aphasic. Left hemiparesis. Squeezes with right hand. SKIN: Warm and dry. LABORATORY DATA: Hemoglobin 6.1, hematocrit 19.7, white count 11,900, platelets 69,000. Sodium 137, potassium 2.9, chloride 109, carbon dioxide 14, BUN 15, and creatinine 1.24. Echocardiogram on 03/13, revealed ejection fraction of 40% to 45%. Hypokinesis of the anterior wall and apex, evidence for diastolic dysfunction, mild left atrial enlargement, mild mitral regurgitation, and mild tricuspid regurgitation. IMPRESSION: 1. Paroxysmal atrial fibrillation, back in sinus rhythm at this time. 2. Mild left ventricular dysfunction with ejection fraction of 40% to 45%. 3. Diastolic dysfunction. 4. Severe anemia with uterine and vaginal bleeding. 5. Acute kidney injury on chronic kidney disease. 6. Cerebrovascular accident, essentially bedridden. RECOMMENDATION: With her severe anemia and uterine and vaginal bleeding, she is not a candidate for anticoagulation with her atrial fibrillation. I feel that our best approach in this severely debilitated lady would be to just load her with digoxin to help with rate control when she does go into atrial fibrillation. She will be started on 0.125 per Dobhoff tube daily. Job ID: [id number] [facility]
[2019-03-21] MEDS: Piperacillin/Tazobactam 2.25 GM in Sodium Chloride 0.9% 100 ML IVPB SCH ×4 (01:38→20:40)
[2019-03-21] MEDS: Hydrocortisone Sod Succ/PF 100 mg/2 ml Vial IVP SCH ×3 (05:11→22:12)
[2019-03-21] MEDS: Levothyroxine 100 MCG SDV IVP SCH (05:11)
[2019-03-21 05:42] LABS: Anion Gap 17 mmol/L (10-20); BUN (Urea Nitrogen) 17 mg/dL (9.8-20.1); Calc. Creatinine Clearance 43 mL/min (70-130); Calcium 7.8 mg/dL (7.8-10.44); Carbon Dioxide 15 mmol/L (23-31); Chloride 109 mmol/L (98-107); Estimated GFR-MDRD 35; Glucose 168 mg/dL (80-115); Magnesium 1.9 mg/dL (1.6-2.6); Potassium 4.8 mmol/L (3.5-5.1); Sodium 136 mmol/L (136-145)
[2019-03-21 05:51] LABS: Band 7 % (5-11); Hemoglobin 9.9 g/dL (12.0-16.0); Large Platelets SLIGHT; Lymphocytes 7 % (21-51); MDiff Complete? YES; Mean Corpuscular HGB CONC 32.3 g/dL (32.0-36.0); Mean Corpuscular Hemoglobin 30.5 pg (27.0-31.0); Mean Corpuscular Volume 94.5 fL (78.0-98.0); Monocytes 3 % (0-10); Neutrophil 83 % (42-75); Nucleated RBC 1 % (0); Platelet Count 72 thou/uL (130-400); Platelet Morphology Comment Appears Decreased; RBC Distribution Width 15.6 % (11.5-14.5); Red Blood Cell (RBC) Count 3.26 mill/uL (4.20-5.40)
[2019-03-21 07:57] LABS: Phosphorus 3.1 mg/dL (2.3-4.7)
[2019-03-21] MEDS: Pantoprazole 40 MG VIAL IVP SCH ×2 (08:09→20:40)
[2019-03-21] MEDS: Aspirin Chewable 81 MG TAB PO SCH (08:09)
[2019-03-21] MEDS: Digoxin 0.125 MG TAB PER TUBE SCH (08:09)
[2019-03-21] MEDS: Sodium Bicarbonate Tab 325 MG TAB PO SCH ×3 (08:19→20:40)
[2019-03-21] MEDS ORDERED: Furosemide 40 MG/4 ML VIAL SLOW IVP SCH (11:45)
--- NOTE | 2019-03-21 12:04 | PRG ---
DATE OF SERVICE: 03/21/2019 SERVICE: Pulmonary Medicine. INTERVAL HISTORY: The patient is doing fine from respiratory standpoint. She got her NG tube placed yesterday and several doses of potassium. Overnight, she reached up and pulled this thing out. She cannot provide additional elements of the history. Her blood pressures have been fairly stable. PHYSICAL EXAMINATION: VITAL SIGNS: Afebrile. She is having some hypothermia with a low temperature of 96.4. Pulse 94, blood pressure 112/80, respirations 21, saturation 100%, currently on room air. GENERAL: The patient is awake and alert, in no apparent distress. LUNGS: Decent air entry. Dependent crackles are minimal. There is no prolonged expiratory phase or wheezing present. HEART: Normal rate. Regular. ABDOMEN: Soft, nontender, and nondistended. Bowel sounds are positive. MUSCULOSKELETAL: No cyanosis or clubbing. There is diffuse 3+ pitting throughout. : No [place]. NEUROLOGIC: Grossly nonfocal. LABORATORY DATA: WBC 17.0, hemoglobin 9.9, platelets 72,000 and gently uptrending. Band count is 7% on top of 83% neutrophils. Creatinine 1.47, bicarb 15, chloride 109. Basic metabolic profile is otherwise unremarkable. Magnesium 1.9, phosphorus 3.1. ASSESSMENT: 1. Atrial fibrillation with rapid ventricular response, returned to sinus rhythm. 2. Acute blood loss anemia. 3. Acute kidney injury on chronic kidney disease, 2. 4. Vancomycin toxicity, suspected. 5. Systemic inflammatory response syndrome. 6. Severe protein-calorie malnutrition. DISCUSSION AND PLAN: This patient has failure to thrive. The likelihood that she is going to make a meaningful recovery is extremely low. In order for her to survive, she will need robust nutrition. We can replace the NG tube or consider PEG tube placement for permanent feeds versus transition over to comfort care only. Splitting the difference does not make any sense. I do think she would be a perfectly appropriate candidate for hospice. Pulmonary/Critical Care will continue to follow while she remains in this location. Job ID: [id number]
--- NOTE | 2019-03-21 14:40 | RAD ---
XR Abdomen 1 View/KUB HISTORY: Evaluation of Dobbhoff tube placement COMPARISON: None. FINDINGS: A high KUB shows the Dobbhoff feeding tube be coiled in the fundus region of the stomach. IMPRESSION: Dobbhoff feeding tube coiled within the fundus region of the stomach.
--- NOTE | 2019-03-21 16:48 | PDOC.PN ---
- Subjective Encounter Start Date: 03/21/19 Encounter Start Time: 11:00 Pt seen for followup re: atrial fibrillation. Pt is not answering questions, could not complete ROS. - Objective Resuscitation Status - Order Detail: 03/11/19 19:01 Resuscitation Status Routine Resuscitation Status: FULL: Full Resuscitation Discussed with: confirmed with ROSSY Reviewed: Yes Vital Signs & Weight: Vital Signs (12 hours) Temp Pulse Pulse Pulse BP BP Pulse Ox 03/21/19 16:23 96.4 F L 03/21/19 11:17 96.5 F L 03/21/19 10:55 88 90 97/68 115/88 03/21/19 08:09 86 03/21/19 08:00 100 03/21/19 07:27 96.6 F L Pulse Ox Pulse Ox 03/21/19 16:23 03/21/19 11:17 03/21/19 10:55 94 L 94 L 03/21/19 08:09 03/21/19 08:00 03/21/19 07:27 Weight Admit Weight 129 lb 8 oz Weight 166 lb 8 oz Most Recent Monitor Data Heart Rate from ECG 92 NIBP 119/73 NIBP BP-Mean 88 Respiration from ECG 13 SpO2 100 I&O: 03/20/19 03/21/19 03/22/19 06:59 06:59 06:59 Intake Total 440 1590 Balance 440 1590 Result Diagrams: 03/21/19 05:00 03/21/19 05:00 EKG Reviewed by me: Yes (Tele: lin da silva) Phys Exam - Physical Examination Constitutional: NAD HEENT: moist MMs Neck: supple Respiratory: clear to auscultation bilateral Cardiovascular: RRR Gastrointestinal: soft Moving only RUE Deviation from normal: Unable to assess Dx/Plan (1) Atrial fibrillation with RVR Code(s): I48.91 - UNSPECIFIED ATRIAL FIBRILLATION Status: Acute Comment: on digoxin (2) Acute ischemic stroke Code(s): I63.9 - CEREBRAL INFARCTION, UNSPECIFIED Status: Acute Comment: on aspirin and atorvastatin (3) Anemia Code(s): D64.9 - ANEMIA, UNSPECIFIED Status: Acute Comment: s/p pRBC transfusion, hemoglobin 9.9 today (4) Vaginal bleeding Code(s): N93.9 - ABNORMAL UTERINE AND VAGINAL BLEEDING, UNSPECIFIED Status: Acute Comment: seen by gynecology service (5) Hypothyroidism Code(s): E03.9 - HYPOTHYROIDISM, UNSPECIFIED Status: Acute Comment: on IV synthroid (6) GERD (gastroesophageal reflux disease) Code(s): K21.9 - GASTRO-ESOPHAGEAL REFLUX DISEASE WITHOUT ESOPHAGITIS Status: Chronic Comment: stable (7) HTN (hypertension) Code(s): I10 - ESSENTIAL (PRIMARY) HYPERTENSION Status: Chronic Comment: controlled (8) Hypokalemia Code(s): E87.6 - HYPOKALEMIA Status: Resolved (9) Hypomagnesemia Code(s): E83.42 - HYPOMAGNESEMIA Status: Resolved (10) Hyponatremia Code(s): E87.1 - HYPO-OSMOLALITY AND HYPONATREMIA Status: Resolved - Plan * . Need to discuss goals of care including nutrition with family, unable to contact them. Review of Systems - Medications/Allergies Allergies/Adverse Reactions: Allergies Allergy/AdvReac Type Severity Reaction Status Date / Time No Known Allergies Allergy Verified 03/12/19 00:17 Medications: Current Medications Aspirin (Aspirin Chewable) 81 mg PO DAILY [facility] Last Admin: 03/21/19 08:09 Dose: 81 mg Atorvastatin Calcium (Lipitor) 40 mg PO HS [facility] Last Admin: 03/20/19 20:36 Dose: 40 mg Digoxin (Lanoxin) 0.125 mg PER TUBE DAILY [facility] Last Admin: 03/21/19 08:09 Dose: 0.125 mg Furosemide (Lasix) 40 mg SLOW IVP DAILY [facility] Hydrocortisone Sodium Succinate (Solu-Cortef) 50 mg IVP Q8HR [facility] Last Admin: 03/21/19 14:20 Dose: 50 mg Piperacillin Sod/Tazobactam (Sod 2.25 gm/ Sodium Chloride) 100 mls @ 200 mls/ hr IVPB Q6H [facility] Last Admin: 03/21/19 14:40 Dose: 100 mls Levothyroxine Sodium (Synthroid) 100 mcg IVP 0600 [facility] Last Admin: 03/21/19 05:11 Dose: 100 mcg Miscellaneous Medication (Pharmacy To Dose) 1 each IVPB DAILY [facility] Last Admin: 03/21/19 08:10 Dose: Not Given Pantoprazole Sodium (Protonix) 40 mg IVP Q12HR [facility] Last Admin: 03/21/19 08:09 Dose: 40 mg Sodium Bicarbonate (Bicarbonate, Sodium) 650 mg PO TID [facility] Last Admin: 03/21/19 16:15 Dose: 650 mg Sodium Chloride (Flush - Normal Saline) 10 ml IVF PRN PRN PRN Reason: Saline Flush Last Admin: 03/21/19 08:07 Dose: 10 ml
--- NOTE | 2019-03-21 16:56 | PDOC.EVN ---
Event Note - Event Note Event Note: Ms. Jiang is unable to read, write or speak for herself. Her medical condition and state of mind are such that she will not be able to present in person.
[2019-03-21] MEDS: Atorvastatin Calcium 40 MG TAB PO SCH (20:40)
[2019-03-22] MEDS: Piperacillin/Tazobactam 2.25 GM in Sodium Chloride 0.9% 100 ML IVPB SCH ×4 (02:28→20:22)
[2019-03-22] MEDS: Hydrocortisone Sod Succ/PF 100 mg/2 ml Vial IVP SCH ×3 (05:58→21:19)
[2019-03-22] MEDS: Levothyroxine 100 MCG SDV IVP SCH (05:59)
[2019-03-22 06:22] LABS: Phosphorus 2.7 mg/dL (2.3-4.7)
[2019-03-22] MEDS: Digoxin 0.125 MG TAB PER TUBE SCH (07:40)
[2019-03-22] MEDS: Aspirin Chewable 81 MG TAB PO SCH (07:40)
[2019-03-22] MEDS: Sodium Bicarbonate Tab 325 MG TAB PO SCH ×3 (07:40→21:15)
[2019-03-22] MEDS: Furosemide 40 MG/4 ML VIAL SLOW IVP SCH (07:41)
[2019-03-22] MEDS: Pantoprazole 40 MG VIAL IVP SCH ×2 (07:41→21:09)
[2019-03-22 09:06] LABS: Vancomycin, Random 47.6 ug/mL (See Comment)
[2019-03-22 12:35] LABS: Anion Gap 19 mmol/L (10-20); BUN (Urea Nitrogen) 18 mg/dL (9.8-20.1); Calc. Creatinine Clearance 43 mL/min (70-130); Calcium 7.7 mg/dL (7.8-10.44); Carbon Dioxide 14 mmol/L (23-31); Chloride 111 mmol/L (98-107); Estimated GFR-MDRD 35; Glucose 134 mg/dL (80-115); Potassium 3.4 mmol/L (3.5-5.1); Sodium 141 mmol/L (136-145)
[2019-03-22 12:52] LABS: Band 3 % (5-11); Hemoglobin 12.4 g/dL (12.0-16.0); Lymphocytes 6 % (21-51); MDiff Complete? YES; Mean Corpuscular HGB CONC 31.3 g/dL (32.0-36.0); Mean Corpuscular Hemoglobin 29.9 pg (27.0-31.0); Mean Corpuscular Volume 95.5 fL (78.0-98.0); Mean Platelet Volume 12.1 fL (7.4-10.4); Neutrophil 91 % (42-75); Platelet Count 73 thou/uL (130-400); Platelet Morphology Comment Appears Decreased; Polychromasia SLIGHT = 2-3 cells (100X) (0-2/hpf); RBC Distribution Width 16.7 % (11.5-14.5); Red Blood Cell (RBC) Count 4.16 mill/uL (4.20-5.40); White Blood Cell (WBC) Count 34.9 thou/uL (4.8-10.8)
[2019-03-22] MEDS ORDERED: Magnesium Sulfate 4 GM in Sodium Chloride 0.9% 250 ML 250 ML IVPB SCH (13:00)
--- NOTE | 2019-03-22 13:12 | PRG ---
DATE OF SERVICE: 03/22/2019 SERVICE: Pulmonary Medicine. INTERVAL HISTORY: The patient is doing really well from respiratory standpoint. She is breathing fairly comfortably. She was awake and alert this morning. She has gone back to being sleepy once again. There were no significant overnight events. PHYSICAL EXAMINATION: VITAL SIGNS: Afebrile, pulse 87, blood pressure 106/61, respirations 18, and saturation 99% on room air. HEENT: Normocephalic and atraumatic. Sclerae white. Conjunctivae pink. Oral mucosa is moist without lesions. LUNGS: Decent air entry. Dependent crackles are present. No prolonged expiratory phase or wheezing is appreciated. HEART: Normal rate. Regular. ABDOMEN: Soft, nontender, and nondistended. Bowel sounds are positive. MUSCULOSKELETAL: No cyanosis or clubbing. There is diffuse 2 to 3+ pitting throughout. NEUROLOGIC: Grossly nonfocal. LABORATORY DATA: WBC has spiked to 34.9, hemoglobin 12.4, platelets 73. Her neutrophil count has increased to 91%, but the band count has fallen off to 2. Potassium 3.4. Basic metabolic profile is otherwise stable or unremarkable with a creatinine of 1.47. Magnesium 1.5, phosphorus 2.7. Vancomycin random is 47.6. Blood cultures x3, urine culture negative to date. ASSESSMENT: 1. Atrial fibrillation with rapid ventricular rate, currently sinus rhythm. 2. Acute blood loss anemia. 3. Acute kidney injury on chronic kidney disease 2. 4. Vancomycin toxicity. 5. Systemic inflammatory response syndrome. 6. Severe protein-calorie malnutrition. 7. Advanced debility. DISCUSSION AND PLAN: Pulmonary Critical Care will continue to follow along. I will give her some potassium and magnesium. We need to continue our palliative care discussion moving forward. The patient is unlikely to make a meaningful recovery from this event. I will continue making efforts at diuresing the patient through time. We will continue supportive care including steroids and antibiotics. Job ID: [id number]
--- NOTE | 2019-03-22 15:18 | PDOC.PN ---
- Subjective Encounter Start Date: 03/22/19 Encounter Start Time: 11:15 Subjective: pt in bed unable to talk - Objective Resuscitation Status - Order Detail: 03/11/19 19:01 Resuscitation Status Routine Resuscitation Status: FULL: Full Resuscitation Discussed with: confirmed with Vital Signs & Weight: Vital Signs (12 hours) Temp Pulse Pulse Ox 03/22/19 10:50 97 F L 03/22/19 07:53 100 03/22/19 07:47 97.2 F L 03/22/19 07:40 86 03/22/19 04:00 97.0 F L Weight Admit Weight 129 lb 8 oz Weight 166 lb 7.184 oz Most Recent Monitor Data Heart Rate from ECG 95 NIBP 103/75 NIBP BP-Mean 84 Respiration from ECG 18 SpO2 100 I&O: 03/21/19 03/22/19 03/23/19 06:59 06:59 06:59 Intake Total 1590 700 Output Total 600 Balance 1590 100 Result Diagrams: 03/22/19 12:18 03/22/19 11:58 Phys Exam - Physical Examination Respiratory: no wheezing, no rales, no rhonchi, wheezing present, clear to auscultation bilateral Cardiovascular: RRR, no significant murmur, no rub, gallop, irregular Gastrointestinal: soft, non-tender, no distention, positive bowel sounds Musculoskeletal: edema present Dx/Plan (1) Atrial fibrillation with RVR Code(s): I48.91 - UNSPECIFIED ATRIAL FIBRILLATION Status: Acute Comment: on digoxin (2) Acute ischemic stroke Code(s): I63.9 - CEREBRAL INFARCTION, UNSPECIFIED Status: Acute Comment: on aspirin and atorvastatin (3) Anasarca Code(s): R60.1 - GENERALIZED EDEMA Status: Acute (4) Hypothyroidism Code(s): E03.9 - HYPOTHYROIDISM, UNSPECIFIED Status: Acute Comment: on IV synthroid (5) GERD (gastroesophageal reflux disease) Code(s): K21.9 - GASTRO-ESOPHAGEAL REFLUX DISEASE WITHOUT ESOPHAGITIS Status: Chronic Comment: stable - Plan pt's overall prognosis is poor -: wbc elevated, pt on steroids. will conitnue zosyn for now -: need to follow creatinine * . Review of Systems - Review of Systems Other: unable to obtain - Medications/Allergies Allergies/Adverse Reactions: Allergies Allergy/AdvReac Type Severity Reaction Status Date / Time No Known Allergies Allergy Verified 03/12/19 00:17 Medications: Current Medications Aspirin (Aspirin Chewable) 81 mg PO DAILY [facility] Last Admin: 03/22/19 07:40 Dose: 81 mg Atorvastatin Calcium (Lipitor) 40 mg PO HS [facility] Last Admin: 03/21/19 20:40 Dose: 40 mg Digoxin (Lanoxin) 0.125 mg PER TUBE DAILY [facility] Last Admin: 03/22/19 07:40 Dose: 0.125 mg Furosemide (Lasix) 40 mg SLOW IVP DAILY [facility] Last Admin: 03/22/19 07:41 Dose: 40 mg Hydrocortisone Sodium Succinate (Solu-Cortef) 50 mg IVP Q8HR [facility] Last Admin: 03/22/19 14:08 Dose: 50 mg Piperacillin Sod/Tazobactam (Sod 2.25 gm/ Sodium Chloride) 100 mls @ 200 mls/ hr IVPB Q6H [facility] Last Admin: 03/22/19 14:10 Dose: 100 mls Levothyroxine Sodium (Synthroid) 100 mcg IVP 0600 [facility] Last Admin: 03/22/19 05:59 Dose: 100 mcg Pantoprazole Sodium (Protonix) 40 mg IVP Q12HR [facility] Last Admin: 03/22/19 07:41 Dose: 40 mg Potassium Chloride (Klor-Con) 40 meq PO Q4HR [facility] Stop: 03/22/19 17:01 Last Admin: 03/22/19 14:08 Dose: 40 meq Sodium Bicarbonate (Bicarbonate, Sodium) 650 mg PO TID [facility] Last Admin: 03/22/19 14:17 Dose: 650 mg Sodium Chloride (Flush - Normal Saline) 10 ml IVF PRN PRN PRN Reason: Saline Flush Last Admin: 03/21/19 08:07 Dose: 10 ml
--- NOTE | 2019-03-22 17:35 | PDOC.EVN ---
Event Note - Event Note Event Note: spoke with pt's biological daughter Alexis Irby via phone who lives in [place] for about 20min. I did explain and updated her about her overall medical issues and her prognosis. She understands and would like her mother not to be resuscitated. She understands that her overall quality of life is poor and if we had to resuscitate her it would not improve her current condition, instead would make her current condition worse. Her number is [phone].
[2019-03-22] MEDS: Atorvastatin Calcium 40 MG TAB PO SCH (21:16)
[2019-03-23] MEDS: Piperacillin/Tazobactam 2.25 GM in Sodium Chloride 0.9% 100 ML IVPB SCH ×4 (02:36→20:53)
[2019-03-23] MEDS: Hydrocortisone Sod Succ/PF 100 mg/2 ml Vial IVP SCH (06:06)
[2019-03-23] MEDS: Levothyroxine 100 MCG SDV IVP SCH (06:06)
[2019-03-23 06:14] LABS: Anion Gap 18 mmol/L (10-20); BUN (Urea Nitrogen) 19 mg/dL (9.8-20.1); Calc. Creatinine Clearance 41 mL/min (70-130); Calcium 7.6 mg/dL (7.8-10.44); Carbon Dioxide 15 mmol/L (23-31); Chloride 112 mmol/L (98-107); Estimated GFR-MDRD 33; Glucose 192 mg/dL (80-115); Magnesium 2.1 mg/dL (1.6-2.6); Potassium 3.7 mmol/L (3.5-5.1); Sodium 141 mmol/L (136-145)
[2019-03-23 06:21] LABS: Band 7 % (5-11); Hemoglobin 13.1 g/dL (12.0-16.0); Lymphocytes 1 % (21-51); MDiff Complete? YES; Mean Corpuscular HGB CONC 33.3 g/dL (32.0-36.0); Mean Corpuscular Hemoglobin 31.7 pg (27.0-31.0); Mean Corpuscular Volume 95.1 fL (78.0-98.0); Mean Platelet Volume 10.2 fL (7.4-10.4); Neutrophil 92 % (42-75); Nucleated RBC 1 % (0); Platelet Count 66 thou/uL (130-400); Platelet Morphology Comment Appears Decreased; RBC Distribution Width 16.8 % (11.5-14.5); Red Blood Cell (RBC) Count 4.15 mill/uL (4.20-5.40); Target Cells SLIGHT = 2-5 cells (100X) (0-1/hpf); White Blood Cell (WBC) Count 30.8 thou/uL (4.8-10.8)
[2019-03-23 08:35] LABS: Digoxin 1.25 ng/mL (0.8-2.0)
[2019-03-23] MEDS: Digoxin 0.125 MG TAB PER TUBE SCH (09:46)
[2019-03-23] MEDS: Furosemide 40 MG/4 ML VIAL SLOW IVP SCH (09:46)
[2019-03-23] MEDS: Aspirin Chewable 81 MG TAB PO SCH (09:47)
[2019-03-23] MEDS: Pantoprazole 40 MG VIAL IVP SCH ×2 (09:53→20:54)
[2019-03-23] MEDS: Sodium Bicarbonate Tab 325 MG TAB PO SCH ×3 (09:57→20:53)
--- NOTE | 2019-03-23 11:26 | PRG ---
DATE OF SERVICE: 03/23/2019 SUBJECTIVE: The patient is doing wonderful from a respiratory standpoint. Her blood pressure is firmed up very nicely. She has returned back to sinus rhythm. Otherwise, there has been no interval change to her condition. She is not able to tolerate pretty much any p.o. intake. As such, we are going to have to decide truthfully whether or not we are going to pursue a PEG tube, or transition over to comfort care only. There really is not much middle ground here. PHYSICAL EXAMINATION: VITAL SIGNS: Afebrile. Pulse 95, blood pressure 122/86, respirations 13, saturation 100% currently on room air. GENERAL: The patient is awake and alert, in no apparent distress. LUNGS: Very good air entry. Dependent crackles are minimal. HEART: Normal rate, regular. ABDOMEN: Soft, nontender, nondistended. Bowel sounds are positive. MUSCULOSKELETAL: No cyanosis or clubbing. There is 3 to 4+ pitting throughout. : No [place]. LABORATORY DATA: WBC 30.8 and downtrending, hemoglobin 13.1, platelets 66,000, and also downtrending. Neutrophil count is 92% on top of 7% bands. Creatinine 1.55. Basic metabolic profile is otherwise unremarkable/stable. Sodium 141, potassium 3.7. Vancomycin level remains quite elevated. Digoxin 1.25. Blood cultures x3 are negative. Urine culture is negative. ASSESSMENT: 1. Atrial fibrillation with rapid ventricular rate, currently sinus rhythm. 2. Acute blood loss anemia, stable. 3. Acute kidney injury on chronic kidney disease stage 2. 4. Vancomycin toxicity, likely. 5. Systemic inflammatory response syndrome. 6. Severe protein-calorie malnutrition. 7. Advanced debility. 8. Recent cerebrovascular accident. DISCUSSION AND PLAN: The family needs to decide whether to be aggressive and place a PEG tube, so that we can move the patient to a skilled nursing care, or whether they want to transition over to comfort care only. I will replace her potassium today. Ultimately, she is stable for transition back to the medical unit. I do think that her atrial fibrillation with RVR was a function of her severe hypokalemia previously. I do not expect a recurrence now that her potassium is back up into the normal range. It appears that her acute kidney injury is improving. We will continue to diurese on a daily basis. Once she returns to euvolemia, we can back off on the diuretics. Job ID: [id number]
--- NOTE | 2019-03-23 16:42 | PDOC.HOSPP ---
- Subjective Subjective: pt up in bed awake but does not follow commands - Objective Vital Signs & Weight: Vital Signs (12 hours) Temp Pulse 03/23/19 15:20 97.0 F L 03/23/19 10:53 97.0 F L 03/23/19 09:46 101 H 03/23/19 07:32 97.0 F L Weight Admit Weight 129 lb 8 oz Weight 168 lb 9.6 oz Most Recent Monitor Data Heart Rate from ECG 130 NIBP 133/87 NIBP BP-Mean 102 Respiration from ECG 19 SpO2 90 I&O: 03/22/19 03/23/19 03/24/19 06:59 06:59 06:59 Intake Total 700 670 60 Output Total 600 Balance 100 670 60 Result Diagrams: 03/23/19 05:43 03/23/19 05:43 ROS - Review of Systems All systems: All other ROS were reviewed and found negative. Other: unable to obtain - Medication Medications: Active Medications Generic Name Dose Route Start Last Admin Trade Name Freq PRN Reason Stop Dose Admin Aspirin 81 mg 03/21/19 09:00 03/23/19 09:47 Aspirin Chewable PO 81 mg DAILY [facility] Administration Atorvastatin Calcium 40 mg 03/12/19 21:00 03/22/19 21:16 Lipitor PO 40 mg HS [facility] Administration Digoxin 0.125 mg 03/21/19 09:00 03/23/19 09:46 Lanoxin PER TUBE 0.125 mg DAILY [facility] Administration Furosemide 40 mg 03/22/19 09:00 03/23/19 09:46 Lasix SLOW IVP 40 mg DAILY [facility] Administration Piperacillin Sod/Tazobactam 100 mls @ 200 mls/hr 03/19/19 20:00 03/23/19 16: 07 Sod 2.25 gm/ Sodium Chloride IVPB 100 mls Q6H [facility] Administration Pantoprazole Sodium 40 mg 03/11/19 21:00 03/23/19 09:53 Protonix IVP 40 mg Q12HR [facility] Administration Sodium Bicarbonate 650 mg 03/14/19 15:00 03/23/19 16:07 Bicarbonate, Sodium PO 650 mg TID [facility] Administration Sodium Chloride 10 ml 03/11/19 19:01 03/21/19 08:07 Flush - Normal Saline IVF 10 ml PRN PRN Administration Saline Flush - Exam Neck: supple, symmetric, no JVD, no Thyromegaly, no lymphadenopathy, no carotid bruit, JVD Heart: RRR, no murmur, no gallops, no rubs, normal peripheral pulses, irregular , diminshed peripheral pulses, murmur present, II/IV, III/IV Respiratory: CTAB, no wheezes, no rales, no ronchi, normal chest expansion, no tachypnea, normal percussion, rales, rhonchi, tachypneic, wheezes Hosp A/P (1) Atrial fibrillation with RVR Code(s): I48.91 - UNSPECIFIED ATRIAL FIBRILLATION Status: Acute (2) Acute ischemic stroke Code(s): I63.9 - CEREBRAL INFARCTION, UNSPECIFIED Status: Acute (3) Anasarca Code(s): R60.1 - GENERALIZED EDEMA Status: Acute (4) Hypothyroidism Code(s): E03.9 - HYPOTHYROIDISM, UNSPECIFIED Status: Acute (5) GERD (gastroesophageal reflux disease) Code(s): K21.9 - GASTRO-ESOPHAGEAL REFLUX DISEASE WITHOUT ESOPHAGITIS Status: Chronic - Plan spoke with pt's daughter alexis about possible peg tube placement vs hospice. She understands that if she does not get a peg tube she will not get any nutrition and will pass away. We would give her pleasure feedings which could cause aspiration and she understands. She will try to talk with her step father and then let us know. pt's was updated but he i believe she does have cognitive impairment and is unable to make a decision about her currently. Her only biological child is Alexis Irby. The pt has no other children.
[2019-03-23 20:15] LABS: Bacteria/HPF 2+ HPF (None Seen); Bilirubin Negative (Negative); Blood, Urine 1+ (Negative); Clarity Turbid (Clear); Glucose, Urine (Dipstick) Normal (Negative); Leukocyte Negative Leu/uL (Negative); Nitrite Negative (Negative); Protein, Urine (Dipstick) Negative (Neg-Trace); RBC/HPF 0-3 HPF (0-3); Squamous Epithelial 0-3 HPF (0-3); Urobilinogen Normal mg/dL (Less than 2)
[2019-03-23] MEDS: Atorvastatin Calcium 40 MG TAB PO SCH (20:53)
[2019-03-23] MEDS ORDERED: Metoprolol Tartrate 5 MG/5 ML VIAL IVP SCH (22:00)
[2019-03-24] MEDS: Piperacillin/Tazobactam 2.25 GM in Sodium Chloride 0.9% 100 ML IVPB SCH ×3 (02:38→15:56)
[2019-03-24] MEDS ORDERED: Levothyroxine Sodium 50 MCG TAB PO SCH (06:00)
[2019-03-24] MEDS: Digoxin 0.125 MG TAB PER TUBE SCH (08:15)
[2019-03-24] MEDS: Aspirin Chewable 81 MG TAB PO SCH (08:15)
[2019-03-24] MEDS: Sodium Bicarbonate Tab 325 MG TAB PO SCH ×2 (08:15→15:00)
[2019-03-24] MEDS: Furosemide 40 MG/4 ML VIAL SLOW IVP SCH (08:15)
[2019-03-24] MEDS: Pantoprazole 40 MG VIAL IVP SCH (08:16)
[2019-03-24 08:29] LABS: Anion Gap 17 mmol/L (10-20); BUN (Urea Nitrogen) 21 mg/dL (9.8-20.1); Calc. Creatinine Clearance 34 mL/min (70-130); Calcium 7.2 mg/dL (7.8-10.44); Carbon Dioxide 15 mmol/L (23-31); Chloride 113 mmol/L (98-107); Estimated GFR-MDRD 28; Glucose 284 mg/dL (80-115); Potassium 3.8 mmol/L (3.5-5.1); Sodium 141 mmol/L (136-145)
[2019-03-24 08:39] LABS: Vancomycin, Random 43.6 ug/mL (See Comment)
[2019-03-24 08:44] LABS: Band 16 % (5-11); Hemoglobin 12.4 g/dL (12.0-16.0); Lymphocytes 9 % (21-51); MDiff Complete? YES; Mean Corpuscular HGB CONC 32.7 g/dL (32.0-36.0); Mean Corpuscular Hemoglobin 30.7 pg (27.0-31.0); Mean Corpuscular Volume 93.9 fL (78.0-98.0); Mean Platelet Volume 12.5 fL (7.4-10.4); Monocytes 3 % (0-10); Neutrophil 72 % (42-75); Nucleated RBC 1 % (0); Platelet Count 81 thou/uL (130-400); Platelet Morphology Comment Appears Decreased; Polychromasia SLIGHT = 2-3 cells (100X) (0-2/hpf); RBC Distribution Width 16.7 % (11.5-14.5); Red Blood Cell (RBC) Count 4.03 mill/uL (4.20-5.40); Target Cells SLIGHT = 2-5 cells (100X) (0-1/hpf); White Blood Cell (WBC) Count 26.9 thou/uL (4.8-10.8)
[2019-03-24] MEDS ORDERED: Furosemide 40 MG/4 ML VIAL SLOW IVP SCH (13:45)
[2019-03-24 14:10] VITALS: BMI 24.6
[2019-03-24] MEDS ORDERED: Hydrocortisone Sod Succ/PF 100 mg/2 ml Vial IVP SCH ×2 (14:15→21:00)
[2019-03-24] MEDS ORDERED: Albumin 25% 25 GM/100 ML BOT IVPB SCH (14:15)
[2019-03-24] MEDS ORDERED: Morphine 4 MG/ML VIAL SLOW IVP PRN (14:41)
[2019-03-24 15:46] VITALS: TEMP 97.6
[2019-03-24 15:56] VITALS: BP 63/51
== END 2019-03-24 20:01 | disposition expired | DRG 64 ==
LOC: ERS 13:30 → 2SE 20:34 → IMCU/EMU 03-20 03:02 → 2SE 03-24 00:55
PROVIDERS: ADMIT Internal Medicine; ATTEND Internal Medicine
PROC: 30233N1 Transfusion of Nonautologous Red Blood Cells into Peripheral Vein, Percutaneous Approach (ICD-10-PCS; principal; 2019-03-20)
DX: I63.9 Cerebral infarction, unspecified (principal); E43 Unspecified severe protein-calorie malnutrition; R65.10 Systemic inflammatory response syndrome (SIRS) of non-infectious origin without acute organ dysfunction; E87.1 Hypo-osmolality and hyponatremia; E87.2 Acidosis; G81.94 Hemiplegia, unspecified affecting left nondominant side; N17.9 Acute kidney failure, unspecified; D62 Acute posthemorrhagic anemia; K86.1 Other chronic pancreatitis; Z51.5 Encounter for palliative care; R47.01 Aphasia; I12.9 Hypertensive chronic kidney disease with stage 1 through stage 4 chronic kidney disease, or unspecified chronic kidney disease; N18.2 Chronic kidney disease, stage 2 (mild); E87.6 Hypokalemia; K21.9 Gastro-esophageal reflux disease without esophagitis; F10.10 Alcohol abuse, uncomplicated; I48.0 Paroxysmal atrial fibrillation; D63.1 Anemia in chronic kidney disease; F03.90 Unspecified dementia, unspecified severity, without behavioral disturbance, psychotic disturbance, mood disturbance, and anxiety; E83.42 Hypomagnesemia; E83.51 Hypocalcemia; N93.9 Abnormal uterine and vaginal bleeding, unspecified; Z68.24 Body mass index [BMI] 24.0-24.9, adult; Z87.891 Personal history of nicotine dependence; Z74.01 Bed confinement status
CPT/HCPCS: 36415; 36416; 36430; 51701; 70450; 70551; 71045; 74018; 80048; 80053; 80061; 80162; 80202; 81001; 81003; 81015; 82140; 82274; 82533; 82553; 82570; 82607; 82728; 82746; 83540; 83550; 83605; 83735; 83935; 84100; 84156; 84300; 84439; 84443; 84484; 85025; 85046; 86850; 86900; 86901; 87040; 87086; 87149; 93005; 93010; 93306; 93880; 94640; 94760; 96361; 96365; A4353; C9113; J1160; J1644; J1720; J1940; J2270; J2543; J3370; J3475; J3480; J3490; J7050; J7070; J7620; P9016; P9047